=== PATIENT | female | born 1990 | race Caucasian/White ===

== ENCOUNTER → 2017-01-01 | Outpatient (CLI) | payer SELFPAY ==
[2017-01-01 16:27] LABS: FREE T4 (FREE THYROXINE) 1.14 ng/dL (0.93-1.71)
== END ==
LOC: MOB LAB 15:25
PROVIDERS: ATTEND Obstetrics & Gynecology
DX: Z36 Encounter for antenatal screening of mother (principal); Z3A.22 22 weeks gestation of pregnancy
CPT/HCPCS: 36415; 84439; 84443

== ENCOUNTER 2017-01-10 00:35 | Outpatient (CLI) | payer OTHER ==
[~2017-01-10 00:35] MED LIST: NORMAL SALINE 10 ML SYRINGE FLUSH IVP PRN
[2017-01-10 00:51] VITALS: RESP 20; TEMP 97.8
[2017-01-10] MEDS ORDERED: ACETAMINOPHEN 500 MG TABLET PO ONE ×2 (01:24→01:30)
--- NOTE | 2017-01-10 08:51 | PDOC(PROG) ---
Intake - - Reason for Visit/Chief Complaint: Other Additional Reason(s) for Visit: abdominal pain Admitted From: Home - LMP: 07/26/16 Estimated Due Date: 05/02/17 Gestational Age in Weeks and Days: 24 Weeks and 0 Days : 1 Para: 0 Term Births: 0 Births: 0 Number of Abortions (Spont./Elective): 0 Living Children: 0 Maternal - Vital Signs Last Taken Vital Signs: Vital Signs - Last Taken Temperature 97.8 F 01/10/17 00:34 Pulse Rate 88 01/10/17 00:34 Respiratory Rate 20 01/10/17 00:34 Blood Pressure 124/88 01/10/17 00:34 Pulse Ox 100 01/10/17 00:34 - Uterine Activity Uterine Contraction Monitor Mode: External Contraction Frequency(minutes): X2 Contraction Duration (seconds): 40 Uterine Contraction Pattern: Absent Uterine Tone Measurement Phase: Resting - Vaginal Discharge Vaginal Bleeding Amount: None Vaginal Discharge Amount: None Monitoring - Uterine Activity Uterine Contraction Monitor Mode: External Contraction Frequency(minutes): X2 Contraction Duration (seconds): 40 Uterine Contraction Pattern: Absent Uterine Tone Measurement Phase: Resting Results - Bedside Testing Bedside Urine Ketone: Negative Bedside Urine Leukocytes Esterase: Negative Bedside Urine Nitrite: Negative Bedside Urine Occult Blood: Negative Bedside Urine Protein: Negative Bedside Specific [place]: 1.015 Assessment and Plan - Patient Problems (1) Abdominal pain affecting Status: AcuteSupport Text: 26 yo at 24 weeks gestation who presented for umbilical pain at the fundus and b/l hips. Has been present for 72 hours. Has not tried anything to help it. Denies LOF, VB, vaginal discharge, contractions. Just sore whenever baby moves, good movement. FHT dopplered and wnl. Patient observed for >1 hour on the monitor, mild uterine irritability. Urine slightly concentrated but no sign of infection. Given 1000mg of tylenol. Education provided. F/u next week with OB provider, sooner for any concerns. Precautions. - Time Time Spent With Patient: Greater Than 35 Mintues
== END 2017-01-10 01:45 | disposition home or self-care (01) ==
LOC: OBOP 00:35
PROVIDERS: ATTEND Student in an Organized Health Care Education/Training Program
DX: O26.892 Other specified pregnancy related conditions, second trimester (principal); R10.84 Generalized abdominal pain; Z3A.24 24 weeks gestation of pregnancy
CPT/HCPCS: 81003; 99211

== ENCOUNTER → 2017-01-28 | Outpatient (CLI) | payer SELFPAY ==
[2017-01-28 15:58] LABS: HEMATOCRIT 35.4 % (37.0-47.0); HEMOGLOBIN 11.8 g/dL (12.0-16.0); MEAN CORPUSCULAR HGB CONC 33.3 g/dL (33-37); MEAN CORPUSCULAR VOLUME 84.1 FL (81-99); MEAN PLATELET VOLUME 9.9 FL (7.4-12.2); RED BLOOD COUNT 4.21 10^6/uL (4.20-5.40)
== END ==
LOC: LAB 14:38
PROVIDERS: ATTEND Obstetrics & Gynecology
DX: Z36 Encounter for antenatal screening of mother (principal); Z3A.26 26 weeks gestation of pregnancy
CPT/HCPCS: 36415; 82950; 85027

== ENCOUNTER 2017-02-01 17:16 | Outpatient (CLI) | payer SELFPAY ==
[2017-02-01] MEDS ORDERED: NORMAL SALINE 10 ML SYRINGE FLUSH IVP PRN (17:29)
[2017-02-01 18:03] VITALS: RESP 20; TEMP 97.8
[2017-02-01 18:15] LABS: HEMATOCRIT 34.7 % (37.0-47.0); HEMOGLOBIN 11.6 g/dL (12.0-16.0); MEAN CORPUSCULAR HEMOGLOBIN 28.2 PG (27-31); MEAN CORPUSCULAR HGB CONC 33.4 g/dL (33-37); MEAN CORPUSCULAR VOLUME 84.4 FL (81-99); MEAN PLATELET VOLUME 10.3 FL (7.4-12.2); RED BLOOD COUNT 4.11 10^6/uL (4.20-5.40)
[2017-02-01 18:23] LABS: BLOOD UREA NITROGEN 6 mg/dL (7-22); CALCIUM 8.9 mg/dL (8.7-10.7); EST GLOMERULAR FILTRATION > 60 (>60 ml/min/1.73m(2)); SERUM ALBUMIN 3.5 g/dL (3.5-4.8); URIC ACID 4.6 mg/dl (2.5-6.2)
[2017-02-01 18:36] LABS: AMPHETAMINE SCREEN NEGATIVE (NEG); CANNABINOID SCREEN,URINE NEGATIVE (NEG); COCAINE SCREEN NEGATIVE (NEG); METHADONE URINE SCREEN NEGATIVE (NEG); METHAMPHETAMINES SCREEN,URINE NEGATIVE (NEG); OPIATE SCREEN,URINE NEGATIVE (NEG); TRICYCLIC ANTIDEPRESSANT,URINE NEGATIVE (NEG); URINE SAMPLE TYPE VOIDED SPECIMEN; URINE SPECIFIC GRAVITY - MAN 1.003
--- NOTE | 2017-02-02 12:01 | PDOC(PROG) ---
Intake - - Reason for Visit/Chief Complaint: Decreased Movement Admitted From: Home - Estimated Due Date: 05/02/17 Gestational Age in Weeks and Days: 27 Weeks and 2 Days : 1 Para: 0 Term Births: 0 Births: 0 Number of Abortions (Spont./Elective): 0 Living Children: 0 - Labs Blood Type and Rh: O+ Group B Strep: Unknown Maternal - Vital Signs Last Taken Vital Signs: Vital Signs - Last Taken Temperature 97.8 F 02/01/17 17:43 Pulse Rate 108 H 02/01/17 17:43 Respiratory Rate 20 02/01/17 17:43 Blood Pressure 131/86 02/01/17 17:43 Pulse Ox 95 02/01/17 17:43 - Uterine Activity Uterine Contraction Monitor Mode: External Contraction Frequency(minutes): none noted palpates soft Uterine Contraction Pattern: Absent - Vaginal Discharge Vaginal Bleeding Amount: None Monitoring - Uterine Activity Uterine Contraction Monitor Mode: External Contraction Frequency(minutes): none noted palpates soft Uterine Contraction Pattern: Absent Results - Labs CBC and BMP: 02/01/17 18:15 02/01/17 18:15 - Bedside Testing Bedside Urine Ketone: Negative Bedside Urine Leukocytes Esterase: Moderate Bedside Urine Nitrite: Negative Bedside Urine Occult Blood: Negative Bedside Urine Protein: Negative Bedside Specific [place]: 1.005 Assessment and Plan - Assessment / Plan Additional Assessment/Plan Details: Assessment: IUP 27-2/7 weeks who presented to labor and delivery with decreased movement. External monitoring showed a reactive nonstress test. In labor and delivery, the patient could feel movement well. Additionally , the patient's blood pressure was mildly elevated at 132/90. Repeats were normal. The patient was asymptomatic without headache or abdominal pain. CBC and CMP were obtained and were normal. Plan: Patient was sent home with precautions for kick counts and preeclampsia. The patient's clinic nurse will contact the patient this week for a follow-up blood pressure check but also a 24 hour urine for total protein will be ordered at that time. The labor and delivery nurse thought that it would be best for the patient if the clinic nurse explained to the patient about a 24-hour urine for total protein and how to collect the 24 hour urine for total protein. The patient expressed understanding.
== END 2017-02-01 19:00 | disposition home or self-care (01) ==
LOC: OBOP 17:16
PROVIDERS: ATTEND Obstetrics & Gynecology
DX: O36.8120 Decreased fetal movements, second trimester, not applicable or unspecified (principal); O16.2 Unspecified maternal hypertension, second trimester; Z3A.27 27 weeks gestation of pregnancy
CPT/HCPCS: 36415; 59025; 80053; 80305; 81003; 83615; 84550; 85025; 99211

== ENCOUNTER 2017-02-04 17:00 | Emergency (ER) | payer OTHER ==
[2017-02-04 17:57] VITALS: RESP 18; TEMP 97.1
[2017-02-04 17:57] LABS: BILIRUBIN,URINE NEGATIVE (NEG); CLARITY,URINE CLEAR (CLEAR); COLOR,URINE YELLOW; GLUCOSE, URINE (UA) NEGATIVE (NEG); NITRATE,URINE NEGATIVE (NEG); OCCULT BLOOD,URINE TRACE (NEG); PROTEIN,URINE TRACE mg/dl (NEG); URINE SAMPLE TYPE VOIDED SPECIMEN
[2017-02-04 17:58] LABS: BACTERIA,URINE MANY; RBC,URINE 0-2 /hpf; SQUAMOUS EPITHELIAL CELL,UR MODERATE; UROBILINOGEN,URINE 0.2 EU/dL (0.2); WBC,URINE 25-50
--- NOTE | 2017-02-04 18:03 | PDOC ---
Female Problem HPI - General Chief Complaint: Genitourinary Complaint Stated Complaint: BURNING WITH URINATION Date Seen by Provider: 02/04/17 Time Seen by Provider: 17:58 - History of Present Illness Initial Comments: Patient is a very nice 26-year-old woman who presents to the emergency department with burning with urination and typical signs and symptoms of bladder infection. She is she's had multiple urinary tract infections in the past she has multiple questions about why she gets bladder infections otherwise she is denying any fever or chills denying flank pain denying any nausea or vomiting or any signs of more severe illness or sepsis. She has had a benign . She is primaparous and is at around 7 months. - Patient Home Medications Home Medications: Home Medications Pnv95/Ferrous Fumarate/FA [ Formula Tablet] 1 tab PO DAILY tab - Patient Allergies Allergies/Adverse Reactions: Allergies Allergy/AdvReac Type Severity Reaction Status Date / Time soy AdvReac Unverified 01/28/17 14:08 depoprovera Allergy rash, Uncoded 01/01/17 14:46 throat itching Past Medical History - heen HEENT History: Denies History Cardiovascular History: Denies History Respiratory History: Denies History Gastrointestinal History: Denies History Genitourinary History: Denies History Endocrine History: Hyperthyroidism Musculoskeletal History: Denies History Neurological History: Denies History Blood Disorders: Denies History Psychiatric History: Denies History History of Sexually Transmitted Diseases: No Female Reproductive History: Ovarian Cyst Obstetrical History: Denies History : 1 Para: 0 Cancer History: Denies History In Past Year Been Physically Harmed or Verbally Threatened: No History of MDRO: No History of Other Communicable Diseases: No Tobacco Use: Never Smoker Alcohol Use: None Substance Use Type: None Previous Surgical History: No Significant Family History: No pertinent family hx Past Medical History Reviewed: Reviewed - No Changes ROS - Limitations ROS Limitations: No Limitations [place]: REPORTS: Denies Symptoms Cardiovascular: REPORTS: Denies Cardiac Symptoms Respiratory: REPORTS: Denies Resp Symptoms Neurological: REPORTS: Denies Neuro Symptoms Female Genitourinary Exam - General Appearance General Appearance: POSITIVE: Alert, Cooperative, No Acute Distress - HEENT HEENT: POSITIVE: Head Inspection Nml, Eyes Inspection Nml, Ears Inspection Nml - Neck Neck: POSITIVE: Normal Inspection - Respiratory Respiratory: POSITIVE: No Respiratory Distress - Cardiovascular Cardiovascular: POSITIVE: Regular Rate and Rhythm - Abdomen Abdomen: POSITIVE: Soft, Gravid Uterus - Back Back: NEGATIVE: CVA Tenderness (R), CVA Tenderness (L) Female Genitourinary Progress - Patient's Progress MDM / ED Course: Patient appears to have urinary tract infection. I have discussed with her treatment especially given that she is I've encouraged follow-up with her director of catering sales in the next 3 or 4 days to go over culture results and make sure that she has a UTI that is covered well by her current antibiotic. She is at multiple questions about recurrent urinary tract infection she's had concerned that she might have picked up a particularly bad sort of organism from her recent senior care stay. I have discussed risk factors for her frequent UTIs including her appropriate wiping techniques and micturating after any type of sexual activity. If she continues to have frequent UTIs she may need evaluation from urology. Patient Care Time - Estimated PCT Patient Care Time (In Minutes): 20 Vital Signs - Recent Vital Signs Vital Signs: Vital Signs (Last 8 hours) Temp Pulse Resp BP Pulse Ox 02/04/17 17:36 97.1 F 104 H 18 136/96 94 - VS Reviewed Vital Signs Reviewed: Yes Discharge Clinical Impression: Urinary tract infectious disease Discharge Disposition: Discharged to Home Condition: Stable Patient Instructions Given at Discharge: Urinary Tract Infection in Women (ED)
== END 2017-02-04 18:32 | disposition home or self-care (01) ==
LOC: ER 17:00
DX: O23.43 Unspecified infection of urinary tract in pregnancy, third trimester (principal); Z3A.28 28 weeks gestation of pregnancy
CPT/HCPCS: 81001; 81003; 87088; 99282

== ENCOUNTER 2017-02-08 04:54 | Outpatient (CLI) | payer SELFPAY ==
[2017-02-08] MEDS ORDERED: NORMAL SALINE 10 ML SYRINGE FLUSH IVP PRN (04:56)
[2017-02-08 05:17] VITALS: RESP 20
[2017-02-08 06:37] LABS: BILIRUBIN,URINE NEGATIVE (NEG); CLARITY,URINE CLEAR (CLEAR); COLOR,URINE YELLOW; GLUCOSE, URINE (UA) NEGATIVE (NEG); NITRATE,URINE NEGATIVE (NEG); OCCULT BLOOD,URINE NEGATIVE (NEG); PH,URINE 6.5 (5.0-8.5); PROTEIN,URINE NEGATIVE (NEG); UROBILINOGEN,URINE 0.2 EU/dL (0.2)
[2017-02-08 06:58] LABS: URINE SAMPLE TYPE CLEAN CATCH URINE
[2017-02-08 07:34] VITALS: TEMP 97.4
--- NOTE | 2017-02-11 21:31 | PDOC(PROG) ---
Intake - - Reason for Visit/Chief Complaint: Spotting Admitted From: Home - Estimated Due Date: 05/02/17 Gestational Age in Weeks and Days: 28 Weeks and 4 Days : 1 Para: 0 Term Births: 0 Births: 0 Number of Abortions (Spont./Elective): 0 Living Children: 0 - Labs Blood Type and Rh: O+ Maternal - Vital Signs Last Taken Vital Signs: Vital Signs - Last Taken Temperature 97.4 F 02/08/17 07:00 Pulse Rate 72 02/08/17 07:00 Respiratory Rate 20 02/08/17 07:00 Blood Pressure 115/77 02/08/17 07:00 Pulse Ox 98 02/08/17 07:00 - Uterine Activity Uterine Contraction Monitor Mode: External Contraction Frequency(minutes): x1 Contraction Duration (seconds): 50 Uterine Contraction Pattern: Irregular Uterine Tone Measurement Phase: Resting Uterine Contraction Intensity: Mild Monitoring - Uterine Activity Uterine Contraction Monitor Mode: External Contraction Frequency(minutes): x1 Contraction Duration (seconds): 50 Uterine Contraction Pattern: Irregular Uterine Tone Measurement Phase: Resting Uterine Contraction Intensity: Mild Assessment and Plan - Patient Problems (1) Spotting during in third trimester Status: Acute (2) Vaginal lesion Status: Acute - Assessment / Plan Additional Assessment/Plan Details: Pt presented with cc of vaginal pain and spotting. She had a negative FFN, vaginosis panel and no contractions were noted on the monitor. When the nurses collected the swabs, they noted that she had what appeared to be herpes-like lesions. Pt was started on valtrex. I will relay results of this visit to the pt 's PCP, Dr. Love.
== END 2017-02-08 09:03 | disposition home or self-care (01) ==
LOC: OBOP 04:54
PROVIDERS: ATTEND Family Medicine
DX: O26.853 Spotting complicating pregnancy, third trimester (principal); O26.893 Other specified pregnancy related conditions, third trimester; N89.8 Other specified noninflammatory disorders of vagina; Z3A.28 28 weeks gestation of pregnancy
CPT/HCPCS: 59025; 81003; 82731; 87480; 87491; 87510; 87591; 87660; 99211

== ENCOUNTER → 2017-02-11 | Outpatient (CLI) | payer OTHER | LOC: MOB LAB 14:30 | PROVIDERS: ATTEND Obstetrics & Gynecology | DX: O23.593 Infection of other part of genital tract in pregnancy, third trimester (principal); Z3A.28 28 weeks gestation of pregnancy | CPT/HCPCS: 36415; 86695; 86696 ==

== ENCOUNTER 2017-02-23 00:11 | Outpatient (CLI) | payer OTHER ==
[2017-02-23 02:20] VITALS: RESP 16; TEMP 97.9
--- NOTE | 2017-03-01 19:44 | PDOC(PROG) ---
Intake - - Reason for Visit/Chief Complaint: Low Back Pain - Estimated Due Date: 05/02/17 Gestational Age in Weeks and Days: 31 Weeks and 1 Days : 1 Para: 0 Term Births: 0 Births: 0 Number of Abortions (Spont./Elective): 0 Living Children: 0 - Labs Blood Type and Rh: O+ Hepatitis B Surface Antigen: Absent HIV: Negative Rubella Status: Immune Maternal - Vital Signs Last Taken Vital Signs: Vital Signs - Last Taken Temperature 97.9 F 02/23/17 00:45 Pulse Rate 86 02/23/17 00:45 Respiratory Rate 16 02/23/17 00:45 Blood Pressure 128/91 02/23/17 00:45 Pulse Ox 100 02/23/17 00:45 - Uterine Activity Uterine Contraction Monitor Mode: External Contraction Frequency(minutes): rare Uterine Tone Measurement Phase: Resting - Vaginal Discharge Vaginal Bleeding Amount: None Monitoring - Uterine Activity Uterine Contraction Monitor Mode: External Contraction Frequency(minutes): rare Uterine Tone Measurement Phase: Resting Results - Bedside Testing Bedside Urine Ketone: Negative Bedside Urine Leukocytes Esterase: Negative Bedside Urine Nitrite: Negative Bedside Urine Protein: Negative Bedside Specific [place]: 1.010 Assessment and Plan - Patient Problems (1) Low back pain during in third trimester Status: Acute (2) Anxiety Status: Acute - Assessment / Plan Additional Assessment/Plan Details: -no contractions noted during stay on labor and delivery. -NST was reactive. -was instructed by nurse to speak with Dr. Love regarding options for treating her anxiety. -f/u: per her next regularly scheduled appt.
== END 2017-02-23 02:30 | disposition home or self-care (01) ==
LOC: OBOP 00:11
PROVIDERS: ATTEND Family Medicine
DX: O26.893 Other specified pregnancy related conditions, third trimester (principal); M54.5 Low back pain; O99.343 Other mental disorders complicating pregnancy, third trimester; F41.8 Other specified anxiety disorders; Z3A.29 29 weeks gestation of pregnancy
CPT/HCPCS: 59025; 81003; 99211

== ENCOUNTER → 2017-03-04 | Outpatient (CLI) | payer OTHER | LOC: MMPC 09:00 | PROVIDERS: ATTEND Obstetrics & Gynecology | DX: Z34.03 Encounter for supervision of normal first pregnancy, third trimester (principal); Z3A.31 31 weeks gestation of pregnancy; Z23 Encounter for immunization | CPT/HCPCS: 90715; G0463 ==

== ENCOUNTER 2017-03-05 16:27 | Outpatient (CLI) | payer OTHER ==
[2017-03-05 18:49] VITALS: RESP 18; TEMP 98.9
[2017-03-05] MEDS ORDERED: NORMAL SALINE 10 ML SYRINGE FLUSH IVP PRN (18:50)
--- NOTE | 2017-03-07 06:03 | PDOC(PROG) ---
Intake - - Reason for Visit/Chief Complaint: Decreased Movement Admitted From: Home - Estimated Due Date: 05/02/17 Gestational Age in Weeks and Days: 32 Weeks and 0 Days : 1 Para: 0 Term Births: 0 Births: 0 Number of Abortions (Spont./Elective): 0 Living Children: 0 - Labs Blood Type and Rh: O+ Group B Strep: Negative Hepatitis B Surface Antigen: Absent HIV: Negative Rubella Status: Immune VDRL/RPR: Absent Maternal - Vital Signs Last Taken Vital Signs: Vital Signs - Last Taken Temperature 98.9 F 03/05/17 18:48 Pulse Rate 89 03/05/17 18:48 Respiratory Rate 18 03/05/17 18:48 Blood Pressure 133/89 03/05/17 18:48 Pulse Ox 96 03/05/17 18:48 - Uterine Activity Uterine Contraction Monitor Mode: External Contraction Frequency(minutes): x2 Contraction Duration (seconds): 60 Uterine Contraction Pattern: Irregular Uterine Tone Measurement Phase: Resting - Vaginal Discharge Vaginal Bleeding Amount: None Vaginal Discharge Amount: None Monitoring - Uterine Activity Uterine Contraction Monitor Mode: External Contraction Frequency(minutes): x2 Contraction Duration (seconds): 60 Uterine Contraction Pattern: Irregular Uterine Tone Measurement Phase: Resting Results - Bedside Testing Bedside Urine Ketone: Negative Bedside Urine Leukocytes Esterase: Negative Bedside Urine Nitrite: Negative Bedside Urine Occult Blood: Negative Bedside Urine Protein: Negative Bedside Specific [place]: 1.000 Assessment and Plan - Assessment / Plan Additional Assessment/Plan Details: Reactive NST. Good FM. Discharge to home in good condition. - Time Time Spent With Patient: Less Than 15 Minutes
== END 2017-03-05 20:04 | disposition home or self-care (01) ==
LOC: OBOP 16:27
PROVIDERS: ATTEND Obstetrics & Gynecology
DX: O36.8130 Decreased fetal movements, third trimester, not applicable or unspecified (principal); Z3A.31 31 weeks gestation of pregnancy
CPT/HCPCS: 59025; 81003; 99211

== ENCOUNTER 2017-03-13 13:36 | Outpatient (CLI) | payer OTHER ==
[2017-03-13 13:51] VITALS: RESP 16; TEMP 98.2
--- NOTE | 2017-03-13 15:41 | DI ---
LIMITED OBSTETRICAL ULTRASOUND FOR BIOPHYSICAL PROFILE, 03/13/2017 2:22 PM Clinical History: Abnormal NST indicating distress. Previous Exam: None at this facility for this . ADJUSTED LMP: 07/26/2016. XAVIER: 27.7 cm. Qualitatively, there is increased amniotic fluid for this stage of suggesting polyhydramnios. Heart Rate: 130 Respiration Score: 2 Fine Motor Score: 2 Gross Motor Score: 2 Amnionic Fluid Score: 2 Readin. Biophysical Profile Score: 8/8 2. Amnionic fluid content is 27.7 cm. Qualitatively, this patient has polyhydramnios.
--- NOTE | 2017-03-18 14:18 | PDOC(PROG) ---
Intake - - Reason for Visit/Chief Complaint: Cramping Admitted From: Home - LMP: 07/26/2016 Estimated Due Date: 05/02/17 Gestational Age in Weeks and Days: 33 Weeks and 4 Days : 1 Para: 0 Term Births: 0 Births: 0 Number of Abortions (Spont./Elective): 0 Living Children: 0 - Labs Blood Type and Rh: O+ Group B Strep: Unknown Hepatitis B Surface Antigen: Absent HIV: Negative Rubella Status: Immune VDRL/RPR: Absent Maternal - Vital Signs Last Taken Vital Signs: Vital Signs - Last Taken Temperature 98.2 F 03/13/17 13:47 Pulse Rate 88 03/13/17 13:47 Respiratory Rate 16 03/13/17 13:47 Blood Pressure 133/78 03/13/17 13:47 Pulse Ox 99 03/13/17 13:47 - Uterine Activity Uterine Contraction Monitor Mode: None - Vaginal Discharge Vaginal Bleeding Amount: None Monitoring - Uterine Activity Uterine Contraction Monitor Mode: None Results - Bedside Testing Bedside Urine Ketone: Negative Bedside Urine Leukocytes Esterase: Negative Bedside Urine Nitrite: Negative Bedside Urine Occult Blood: Negative Bedside Urine Protein: Negative Bedside Specific [place]: 1.010 Assessment and Plan - Assessment / Plan Additional Assessment/Plan Details: No signs of labor. BPP normal. Reassuring maternal and evaluation. Discharge to home in good condition. - Time Time Spent With Patient: Less Than 15 Minutes
== END 2017-03-13 15:15 | disposition home or self-care (01) ==
LOC: OBOP 13:36
PROVIDERS: ATTEND Family Medicine
DX: O26.893 Other specified pregnancy related conditions, third trimester (principal); R25.2 Cramp and spasm; O40.3XX0 Polyhydramnios, third trimester, not applicable or unspecified; Z3A.32 32 weeks gestation of pregnancy
CPT/HCPCS: 59025; 76815; 76818; 81003; 99211

== ENCOUNTER 2017-03-17 13:44 | Outpatient (CLI) | payer OTHER ==
[2017-03-17 14:38] VITALS: RESP 20; TEMP 98
[2017-03-17] MEDS ORDERED: NORMAL SALINE 10 ML SYRINGE FLUSH IVP PRN (17:14)
--- NOTE | 2017-03-17 17:16 | DI ---
LIMITED OBSTETRICAL ULTRASOUND FOR XAVIER, 03/17/2017 3:00 PM: Clinical History: Polyhydramnios. Previous Exam: 03/13/2017. ADJUSTED LMP: 07/26/2016. Scans are obtained in all four quadrants for an amnionic fluid index measurement. The XAVIER is 20.9 cm. The heart rate is 128 beats per minute. Reading: Amnionic fluid index is 20.9 cm.
== END 2017-03-17 15:40 | disposition home or self-care (01) ==
LOC: US 13:44
PROVIDERS: ATTEND Obstetrics & Gynecology
DX: O40.3XX0 Polyhydramnios, third trimester, not applicable or unspecified (principal); Z3A.33 33 weeks gestation of pregnancy
CPT/HCPCS: 59025; 76815; 81003; 99211

== ENCOUNTER → 2017-04-01 | Outpatient (CLI) | payer OTHER ==
[~2017-04-01] MED LIST changes: +LIDOCAINE W/ SODIUM BICARB 0.5 ML SYR ONE; -NORMAL SALINE 10 ML SYRINGE FLUSH IVP PRN
[2017-04-01 21:57] LABS: BILIRUBIN,URINE NEGATIVE (NEG); CLARITY,URINE CLEAR (CLEAR); COLOR,URINE YELLOW; GLUCOSE, URINE (UA) NEGATIVE (NEG); NITRATE,URINE NEGATIVE (NEG); OCCULT BLOOD,URINE NEGATIVE (NEG); PH,URINE 6.5 (5.0-8.5); PROTEIN,URINE NEGATIVE (NEG); UROBILINOGEN,URINE 0.2 mg/dL (0.2)
[2017-04-01 22:00] LABS: BACTERIA,URINE RARE; SQUAMOUS EPITHELIAL CELL,UR MODERATE; URINE SAMPLE TYPE VOIDED SPECIMEN; WBC,URINE 0-2
== END ==
LOC: OBOP 20:45 → LAB 20:45
PROVIDERS: ATTEND Family Medicine
DX: Z36 Encounter for antenatal screening of mother (principal); Z3A.35 35 weeks gestation of pregnancy
CPT/HCPCS: 81001

== ENCOUNTER 2017-04-03 22:07 | Outpatient (CLI) | payer OTHER ==
[2017-04-03] MEDS ORDERED: NORMAL SALINE 10 ML SYRINGE FLUSH IVP PRN (22:16)
[2017-04-03 22:20] VITALS: RESP 16; TEMP 98
[2017-04-03 23:31] LABS: HEMATOCRIT 34.6 % (37.0-47.0); HEMOGLOBIN 11.6 g/dL (12.0-16.0); MEAN CORPUSCULAR HEMOGLOBIN 27.6 PG (27-31); MEAN CORPUSCULAR HGB CONC 33.5 g/dL (33-37); MEAN CORPUSCULAR VOLUME 82.2 FL (81-99); MEAN PLATELET VOLUME 11.6 FL (7.4-12.2); RED BLOOD COUNT 4.21 10^6/uL (4.20-5.40)
[2017-04-03 23:40] LABS: BLOOD UREA NITROGEN 9 mg/dL (7-22); BUN/CREATININE RATIO 11.25 (6-20); CALCIUM 9.2 mg/dL (8.7-10.7); EST GLOMERULAR FILTRATION > 60 (>60 ml/min/1.73m(2)); SERUM ALBUMIN 3.3 g/dL (3.5-4.8); URIC ACID 6.2 mg/dl (2.5-6.2)
--- NOTE | 2017-04-08 07:10 | PDOC(PROG) ---
Intake - - Reason for Visit/Chief Complaint: Painful Urination, Visual Disturbance Admitted From: Home - Estimated Due Date: 05/02/17 Gestational Age in Weeks and Days: 36 Weeks and 4 Days : 1 Para: 0 Term Births: 0 Births: 0 Number of Abortions (Spont./Elective): 0 Living Children: 0 - Labs Blood Type and Rh: O+ Maternal - Vital Signs Last Taken Vital Signs: Vital Signs - Last Taken Temperature 98.0 F 04/03/17 22:16 Pulse Rate 77 04/03/17 22:16 Respiratory Rate 16 04/03/17 22:16 Blood Pressure 138/90 04/03/17 23:48 Pulse Ox 100 04/03/17 22:16 - Uterine Activity Uterine Contraction Monitor Mode: External Contraction Frequency(minutes): 15 Contraction Duration (seconds): 90 Uterine Contraction Pattern: Irregular Uterine Tone Measurement Phase: Resting Uterine Contraction Intensity: Mild - Vaginal Discharge Vaginal Bleeding Amount: None Monitoring - Uterine Activity Uterine Contraction Monitor Mode: External Contraction Frequency(minutes): 15 Contraction Duration (seconds): 90 Uterine Contraction Pattern: Irregular Uterine Tone Measurement Phase: Resting Uterine Contraction Intensity: Mild Results - Labs CBC and BMP: 04/03/17 23:25 04/03/17 23:25 - Bedside Testing Bedside Urine Ketone: Negative Bedside Urine Leukocytes Esterase: Negative Bedside Urine Nitrite: Negative Bedside Urine Occult Blood: Negative Bedside Urine Protein: Negative Bedside Specific [place]: 1.010 Assessment and Plan - Assessment / Plan Additional Assessment/Plan Details: Reassuring maternal and evaluation. No signs of PTL. Discharge to home in good condition. - Time Time Spent With Patient: Less Than 15 Minutes
== END 2017-04-04 00:15 | disposition home or self-care (01) ==
LOC: OBOP 22:07
PROVIDERS: ATTEND Obstetrics & Gynecology
DX: O26.893 Other specified pregnancy related conditions, third trimester (principal); R30.0 Dysuria; R10.2 Pelvic and perineal pain; O13.3 Gestational [pregnancy-induced] hypertension without significant proteinuria, third trimester; H53.8 Other visual disturbances; Z3A.35 35 weeks gestation of pregnancy
CPT/HCPCS: 36415; 59025; 80053; 81003; 83615; 84550; 85025; 99211

== ENCOUNTER 2017-04-04 19:58 | Inpatient (IN) | payer OTHER ==
[2017-04-04] MEDS ORDERED: NORMAL SALINE 10 ML SYRINGE FLUSH IVP PRN ×2 (20:38→22:20)
[2017-04-04 21:13] LABS: BLOOD UREA NITROGEN 6 mg/dL (7-22); BUN/CREATININE RATIO 8.57 (6-20); CALCIUM 9.3 mg/dL (8.7-10.7); EST GLOMERULAR FILTRATION > 60 (>60 ml/min/1.73m(2)); SERUM ALBUMIN 3.1 g/dL (3.5-4.8); URIC ACID 6.2 mg/dl (2.5-6.2)
[2017-04-04 21:28] LABS: HEMATOCRIT 34.8 % (37.0-47.0); HEMOGLOBIN 11.9 g/dL (12.0-16.0); MEAN CORPUSCULAR HEMOGLOBIN 28.1 PG (27-31); MEAN CORPUSCULAR HGB CONC 34.2 g/dL (33-37); MEAN CORPUSCULAR VOLUME 82.1 FL (81-99); MEAN PLATELET VOLUME 11.8 FL (7.4-12.2); RED BLOOD COUNT 4.24 10^6/uL (4.20-5.40)
[2017-04-04] MEDS ORDERED: BETAMET ACET/BETAMET NA PH 6 MG/1 ML - 5 ML IM SCH (22:00)
[2017-04-04] MEDS ORDERED: LIDOCAINE W/ SODIUM BICARB 0.5 ML SYR SUBD PRN (22:20)
[2017-04-04] MEDS ORDERED: ONDANSETRON 4 MG/2 ML VIAL IVP PRN (22:20)
[2017-04-04] MEDS: BETAMET ACET/BETAMET NA PH 6 MG/1 ML - 5 ML IM SCH (22:58)
[2017-04-05 00:57] LABS: BILIRUBIN,URINE NEGATIVE (NEG); CLARITY,URINE CLEAR (CLEAR); COLOR,URINE YELLOW; GLUCOSE, URINE (UA) NEGATIVE (NEG); NITRATE,URINE NEGATIVE (NEG); OCCULT BLOOD,URINE NEGATIVE (NEG); PH,URINE 6.5 (5.0-8.5); PROTEIN,URINE NEGATIVE (NEG); UROBILINOGEN,URINE 0.2 EU/dL (0.2)
[2017-04-05 00:58] LABS: URINE SAMPLE TYPE CLEAN CATCH URINE
[2017-04-05 01:14] LABS: AMPHETAMINE SCREEN NEGATIVE (NEG); CANNABINOID SCREEN,URINE NEGATIVE (NEG); COCAINE SCREEN NEGATIVE (NEG); METHADONE URINE SCREEN NEGATIVE (NEG); METHAMPHETAMINES SCREEN,URINE NEGATIVE (NEG); OPIATE SCREEN,URINE NEGATIVE (NEG); TRICYCLIC ANTIDEPRESSANT,URINE NEGATIVE (NEG)
[2017-04-05 08:14] LABS: BLOOD UREA NITROGEN 6 mg/dL (7-22); BUN/CREATININE RATIO 8.57 (6-20); CALCIUM 9.8 mg/dL (8.7-10.7); EST GLOMERULAR FILTRATION > 60 (>60 ml/min/1.73m(2)); SERUM ALBUMIN 3.5 g/dL (3.5-4.8); URIC ACID 6.3 mg/dl (2.5-6.2)
[2017-04-05 08:18] LABS: HEMATOCRIT 36.2 % (37.0-47.0); HEMOGLOBIN 12.3 g/dL (12.0-16.0); MEAN CORPUSCULAR HEMOGLOBIN 27.9 PG (27-31); MEAN CORPUSCULAR VOLUME 82.1 FL (81-99); MEAN PLATELET VOLUME 11.6 FL (7.4-12.2); RED BLOOD COUNT 4.41 10^6/uL (4.20-5.40)
[2017-04-05] MEDS ORDERED: METHYLERGONOVINE MALEATE 0.2 MG/1 ML VIAL IM PRN (08:40)
[2017-04-05] MEDS ORDERED: TERBUTALINE SULFATE 1 MG/1 ML SDV SUBCUT PRN (08:40)
[2017-04-05] MEDS ORDERED: CITRIC ACID/SODIUM CITRATE 30 ML CUP PO PRN (08:40)
[2017-04-05] MEDS ORDERED: ePHEDrine Inj 5 MG in Normal Saline Flush 1 ML IVP PRN (08:40)
[2017-04-05] MEDS ORDERED: OXYTOCIN 10 UNIT/1 ML IM PRN (08:40)
[2017-04-05] MEDS ORDERED: Metoclopramide Inj 10 MG/2 ML VIAL IV PRN (08:40)
[2017-04-05] MEDS ORDERED: Carboprost Inj 250 MCG/ML AMP IM PRN (08:40)
[2017-04-05] MEDS ORDERED: ONDANSETRON 4 MG/2 ML VIAL IVP PRN (08:40)
[2017-04-05] MEDS ORDERED: NALOXONE 0.4 MG/1 ML VIAL IVP PRN (08:40)
[2017-04-05] MEDS ORDERED: fentaNYL Inj 100 MCG/2 ML VIAL IV PRN (08:40)
[2017-04-05] MEDS ORDERED: Lidocaine 1% 10 MG/ML - 20 ML VIAL SUBCUT PRN (08:40)
[2017-04-05] MEDS ORDERED: BUTORPHANOL TARTRATE 2 MG/1 ML VIAL IVP PRN (08:40)
[2017-04-05] MEDS ORDERED: Naloxone Inj 0.01 MG in Normal Saline Flush 1 ML IVP PRN (08:40)
[2017-04-05] MEDS ORDERED: CefOXitin Inj 2 GM in Sodium Chloride 0.9% 100 ML IV PRN (08:40)
[2017-04-05] MEDS ORDERED: LIDOCAINE W/ SODIUM BICARB 0.5 ML SYR SUBD PRN (08:40)
[2017-04-05] MEDS ORDERED: MISOPROSTOL 200 MCG TABLET RECTAL PRN (08:40)
[2017-04-05] MEDS ORDERED: Famotidine Inj 20 MG in Normal Saline Flush 10 ML IVP PRN ×4 (08:40)
[2017-04-05] MEDS ORDERED: NORMAL SALINE 10 ML SYRINGE FLUSH IVP PRN (08:40)
[2017-04-05] MEDS ORDERED: Nalbuphine Inj 20 MG/ML Ampule IVP PRN (08:40)
[2017-04-05] MEDS ORDERED: Phenylephrine Inj 50 MCG in Normal Saline Flush 0.5 ML IVP PRN (08:40)
[2017-04-05] MEDS ORDERED: diphenhydrAMINE 50 MG/1 ML VIAL IVP PRN (08:40)
[2017-04-05] MEDS ORDERED: Oxytocin 20 Units + LR 1,000 ML IV SCH (08:45)
[2017-04-05] MEDS ORDERED: Prenatal Multivitamin Tab 1 TAB TAB PO SCH (09:00)
[2017-04-05] MEDS ORDERED: PENICILLIN G POTASSIUM 5,000,000 UNIT SDV IV ONE (09:45)
[2017-04-05] MEDS ORDERED: Sodium Chloride 0.9% 100 ML IV ONE (09:56)
[2017-04-05] MEDS: Lactated Ringers-OB Dept 1,000 ML PRIMARY IV SCH (09:57)
[2017-04-05] MEDS ORDERED: FLUCONAZOLE IV ONE (11:24)
[2017-04-05] MEDS ORDERED: SODIUM CHLORIDE IV ONE (11:24)
[2017-04-05 12:19] LABS: 24 HOUR URINE TOTAL VOLUME 7050 ML
[2017-04-05] MEDS: CALCIUM CARBONATE 500 MG (TUMS) CHEWABLE TABLET PO PRN (12:33)
--- NOTE | 2017-04-05 21:55 | OB.PROGRES ---
Date and Time of Service: 04/05/17 @ 0005 Interval History: Pt was admitted last noc for FISHER, increased swelling. She has been monitored for [id number] and has a 24 hour urine for protein in progress. She denies any cramping or contractions, vag bleeding or gushes of fluid. Baby has been moving normally. Pt does report intermittent FISHER and has some pain down her right flank, but nothing in the RUQ per say. She had labs drawn in the past 1-2 days, which were normal. She has a past h/o alcohol syndrome and underlying anxiety as well. Objective - Cervical Exam Cervical Exam: closed/thinning/-2/cephalic and very soft. [place]: every 2-3 minutes, palpating mild. Pt is rating her pain, however, at a 7/ 10. Heart Rate: category 1, no decels noted, moderate variability. Heart Rate Interpretation Category: Category I - Labs CBC and BMP: 04/05/17 08:00 04/05/17 08:00 Labs - Last 24 Hours: Laboratory Results 04/05/17 04/05/17 04/05/17 Range/Units 00:58 08:00 10:39 WBC 17.80 H (4.8-10.8) 10^3/uL RBC 4.41 (4.20-5.40) 10^6/uL Hgb 12.3 (12.0-16.0) g/dL Hct 36.2 L (37.0-47.0) % MCV 82.1 (81-99) FL MCH 27.9 (27-31) PG MCHC 34.0 (33-37) g/dL RDW Std Deviation 44.7 (39-50) fL RDW Coeff of Thad 15.1 H (11.5-14.5) % Plt Count 347 (140-350) 10*3/uL MPV 11.6 (7.4-12.2) FL Sodium 138 (135-145) meq/L Potassium 4.2 (3.8-5.2) meq/L Chloride 110 (98-112) meq/L Carbon Dioxide 19 L (23-33) meq/L Anion Gap 9 (5-20) BUN 6 L (7-22) mg/dL Creatinine 0.7 (0.50-1.20) mg/dL Estimated GFR > 60 (>60 ml/min/1.73m(2)) BUN/Creatinine Ratio 8.57 (6-20) Glucose 113 H (78-110) mg/dL Calculated Osmolality 284.0 (267-292) mOsm/kg Uric Acid 6.3 H (2.5-6.2) mg/dl Calcium 9.8 (8.7-10.7) mg/dL Total Bilirubin 0.4 (0.3-1.2) mg/dL AST 22 (8-39) IU/L ALT 18 (9-52) IU/L Alkaline Phosphatase 146 H (38-126) IU/L Lactate Dehydrogenase 386 (313-618) IU/L Total Protein 6.9 (6.1-8.0) g/dL Albumin 3.5 (3.5-4.8) g/dL Globulin 3.4 (2.50-4.10) g/dL Albumin/Globulin Ratio 1.00 L (1.3-2.0) mg/g Ur Collection Type Clean catch urine Urine Color Yellow Urine Clarity Clear (CLEAR) Urine pH 6.5 (5.0-8.5) Ur Specific [place] 1.010 (1.005-1.030) U Specif Grav (Refrac) 1.010 Urine Protein Negative (NEG) mg/dl Urine Glucose (UA) Negative (NEG) mg/dL Urine Ketones Negative (NEG) Urine Occult Blood Negative (NEG) Urine Nitrate Negative (NEG) Urine Bilirubin Negative (NEG) Urine Urobilinogen 0.2 (0.2) EU/dL Ur Leukocyte Esterase Negative (NEG) Ur Culture Indicated? Culture not set Ur 24 Hour Volume 7050 ML Ur Total Protein 24 Hr 15 mg/dL U Tot Protein 24h, Calc 1057 H (42-225) mg/DAY Urine Opiates Screen Negative (NEG) Ur Buprenorphine Negative (NEG) Ur Oxycodone Screen Negative (NEG) Urine Methadone Screen Negative (NEG) Ur Propoxyphene Screen Negative (NEG) Ur Barbiturates Screen Negative (NEG) U Tricyclic Antidepress Negative (NEG) Phencyclidine Screen Negative (NEG) Amphetamines Screen Negative (NEG) U Methamphetamines Scrn Negative (NEG) U Benzodiazepines Scrn Negative (NEG) Urine Cocaine Screen Negative (NEG) U Cannabinoids Screen Negative (NEG) - Vital Signs Last Taken Vital Signs: Vital Signs - Last Taken Temperature 98.2 F 04/05/17 19:48 Pulse Rate 82 04/05/17 19:48 Respiratory Rate 20 04/05/17 19:48 Blood Pressure 132/78 04/05/17 20:08 Pulse Ox 98 04/05/17 19:48 Assessment and Plan - Patient Problems (1) Gestational hypertension Current Visit: Yes Status: Acute (2) Candidal vaginitis Current Visit: Yes Status: Acute (3) uterine contractions Current Visit: Yes Status: Acute - Assessment / Plan Additional Assessment/Plan Details: -Pt with blood pressures that qualify a gestational hypertension diagnosis, urine dip for protein was trace but she does have a 24 hour urine for protein pending. -she has received 1 dose of betamethasone last noc and will have this repeated tonight in the event that she will deliver or needs to be delivered early. The steroids may be the cause of some of her contractions today as well. -GBS is pending. -will treat yeast vaginitis with diflucan today. -continue to follow closely. Will trend her labs tomorrow and continue to monitor her in the inpatient setting for symptoms of severe pre-eclampsia. -I updated Dr. Love on the pt's status and plan around noon. He will assume care of this patient starting at 1200 today until I return from out of town tomorrow.
[2017-04-05] MEDS: BETAMET ACET/BETAMET NA PH 6 MG/1 ML - 5 ML IM SCH (23:00)
[2017-04-06] MEDS: Lactated Ringers-OB Dept 1,000 ML PRIMARY IV SCH (06:05)
[2017-04-06 07:28] LABS: HEMATOCRIT 39.1 % (37.0-47.0); HEMOGLOBIN 13.2 g/dL (12.0-16.0); MEAN CORPUSCULAR HEMOGLOBIN 28.1 PG (27-31); MEAN CORPUSCULAR HGB CONC 33.8 g/dL (33-37); MEAN CORPUSCULAR VOLUME 83.2 FL (81-99); RED BLOOD COUNT 4.7 10^6/uL (4.20-5.40)
[2017-04-06 07:29] LABS: MEAN PLATELET VOLUME 11.8 FL (7.4-12.2)
[2017-04-06] MEDS: CALCIUM CARBONATE 500 MG (TUMS) CHEWABLE TABLET PO PRN (07:31)
[2017-04-06 07:37] LABS: BLOOD UREA NITROGEN 9 mg/dL (7-22); BUN/CREATININE RATIO 11.25 (6-20); CALCIUM 9.6 mg/dL (8.7-10.7); EST GLOMERULAR FILTRATION > 60 (>60 ml/min/1.73m(2)); SERUM ALBUMIN 3.5 g/dL (3.5-4.8); URIC ACID 6.3 mg/dl (2.5-6.2)
[2017-04-06 08:48] VITALS: RESP 18; TEMP 98.2
[2017-04-06] MEDS ORDERED: MAG HYDROX/AL HYDROX/SIMETH 30 ML SUSP PO ONE (08:51)
--- NOTE | 2017-04-06 09:37 | DCSUMMARY ---
Hospitalization Summary Admit Date: 03/28/17 Discharge Date: 04/06/17 Primary Diagnosis:: Pre Eclampsia at 36 weeks Hospital Course: The patient was observed on L&D and given two doses of steroids, 24 hours apart for FLM. She had regular contractions last evening, but these abated without cervical change. BP's have been in the 120-140/70-100s. 24 hour urine returned with 1 gr of protein, c/w pre eclampsia. Labs have otherwise remained normal. The patient was discharged home to bed rest with twice weekly f/u on L& D. Exam - Vitals Vital Signs: Vital Signs Temperature 98.2 F Temperature Source Oral Pulse Rate [Pulse Oximeter] 79 Respiratory Rate 18 Blood Pressure [Left Arm] 129/81 Blood Pressure [Right Arm] 137/93 Pulse Ox 98 Oxygen Delivery Method Room Air Height 5 ft 3 in Weight 195 lb 6.4 oz
== END 2017-04-06 10:10 | disposition home or self-care (01) | DRG 781 ==
LOC: OBOP 19:58 → OBIP 22:15 → OBSVTOIN 04-05 08:40 → OBIP 04-05 08:40
PROVIDERS: ADMIT Family Medicine; ATTEND Family Medicine
DX: O14.93 Unspecified pre-eclampsia, third trimester (principal); O60.03 Preterm labor without delivery, third trimester; O23.593 Infection of other part of genital tract in pregnancy, third trimester; Z3A.36 36 weeks gestation of pregnancy; O13.3 Gestational [pregnancy-induced] hypertension without significant proteinuria, third trimester
CPT/HCPCS: 36415; 80053; 80305; 81003; 83615; 84156; 84550; 85025; 87150; 87480; 87510; 87660; J0702; J1450; J2540; J7050; J7120

== ENCOUNTER 2017-04-08 12:29 | Outpatient (CLI) | payer OTHER ==
[2017-04-08 12:21] VITALS: RESP 20; TEMP 97.8
[2017-04-08 12:46] LABS: BLOOD UREA NITROGEN 13 mg/dL (7-22); BUN/CREATININE RATIO 18.57 (6-20); EST GLOMERULAR FILTRATION > 60 (>60 ml/min/1.73m(2)); SERUM ALBUMIN 3.2 g/dL (3.5-4.8); URIC ACID 6.5 mg/dl (2.5-6.2)
[2017-04-08] MEDS ORDERED: ACETAMINOPHEN 500 MG TABLET PO ONE (13:00)
[2017-04-08 13:12] LABS: HEMATOCRIT 37.7 % (37.0-47.0); HEMOGLOBIN 12.4 g/dL (12.0-16.0); MEAN CORPUSCULAR HEMOGLOBIN 27.7 PG (27-31); MEAN CORPUSCULAR HGB CONC 32.9 g/dL (33-37); MEAN CORPUSCULAR VOLUME 84.2 FL (81-99); MEAN PLATELET VOLUME 12.2 FL (7.4-12.2); RED BLOOD COUNT 4.48 10^6/uL (4.20-5.40)
--- NOTE | 2017-04-08 16:11 | PDOC(PROG) ---
Intake - - Reason for Visit/Chief Complaint: Other Additional Reason(s) for Visit: apt Admitted From: Home - Estimated Due Date: 05/02/17 Gestational Age in Weeks and Days: 36 Weeks and 4 Days : 1 Para: 0 Term Births: 0 Births: 0 Number of Abortions (Spont./Elective): 0 Living Children: 0 - Labs Blood Type and Rh: O+ Group B Strep: Positive Hepatitis B Surface Antigen: Absent HIV: Negative Rubella Status: Immune VDRL/RPR: Absent Maternal - Vital Signs Last Taken Vital Signs: Vital Signs - Last Taken Temperature 97.8 F 04/08/17 12:17 Pulse Rate 88 04/08/17 12:17 Respiratory Rate 20 04/08/17 12:17 Blood Pressure 128/86 04/08/17 12:17 Pulse Ox 99 04/08/17 12:17 - Uterine Activity Uterine Contraction Monitor Mode: External Uterine Contraction Pattern: Absent Uterine Tone Measurement Phase: Resting - Vaginal Discharge Vaginal Bleeding Amount: None Monitoring - Uterine Activity Uterine Contraction Monitor Mode: External Uterine Contraction Pattern: Absent Uterine Tone Measurement Phase: Resting Results - Labs CBC and BMP: 04/08/17 12:17 04/08/17 12:17 - Bedside Testing Bedside Urine Ketone: Negative Bedside Urine Leukocytes Esterase: Negative Bedside Urine Nitrite: Negative Bedside Urine Occult Blood: Negative Bedside Urine Protein: Negative Bedside Specific [place]: 1.005 Assessment and Plan - Assessment / Plan Additional Assessment/Plan Details: Assessment: IUP 36-4/7 weeks with preeclampsia without signs or symptoms of severe preeclampsia. Reactive nonstress test Blood pressures were mildly elevated Patient stated that her headache that she had had since discharge from the hospital was improved today. Patient was given Tylenol and her headache improved somewhat. Patient left labor and delivery before total resolution of headache. The patient was urged to return to labor and delivery for an increased headache Labs were normal with normal platelets, creatinine was normal. AST and ALT were normal. Plan: Decreased activity or bed rest at home Preeclampsia symptoms discussed with patient and for patient to return for increased symptoms Induction of labor with cervical ripening in 2 days when the patient is 36-6/7 week Patient's cervix was checked today and I believe her cervix was fingertip. Her cervix is very soft. I will examine the patient with a speculum in 2 days. The patient expressed understanding with this plan. If the patient's cervix is normal and not ripened, cervical ripening with Cytotec. This was explained to the patient. Patient expressed understanding and left labor and delivery.
== END 2017-04-08 14:00 | disposition home or self-care (01) ==
LOC: OBOP 12:29
PROVIDERS: ATTEND Obstetrics & Gynecology
DX: O14.93 Unspecified pre-eclampsia, third trimester (principal); Z3A.36 36 weeks gestation of pregnancy
CPT/HCPCS: 36415; 80053; 81003; 83615; 84550; 85025

== ENCOUNTER 2017-04-10 09:11 | Inpatient (IN) | payer OTHER ==
[2017-04-10] MEDS ORDERED: MISOPROSTOL 200 MCG TABLET RECTAL PRN (09:18)
[2017-04-10] MEDS ORDERED: Phenylephrine Inj 50 MCG in Normal Saline Flush 0.5 ML IVP PRN (09:18)
[2017-04-10] MEDS ORDERED: Metoclopramide Inj 10 MG/2 ML VIAL IV PRN (09:18)
[2017-04-10] MEDS ORDERED: Naloxone Inj 0.01 MG in Normal Saline Flush 1 ML IVP PRN (09:18)
[2017-04-10] MEDS ORDERED: LIDOCAINE W/ SODIUM BICARB 0.5 ML SYR SUBD PRN (09:18)
[2017-04-10] MEDS ORDERED: ePHEDrine Inj 5 MG in Normal Saline Flush 1 ML IVP PRN (09:18)
[2017-04-10] MEDS ORDERED: fentaNYL Inj 100 MCG/2 ML VIAL IV PRN (09:18)
[2017-04-10] MEDS ORDERED: Carboprost Inj 250 MCG/ML AMP IM PRN (09:18)
[2017-04-10] MEDS ORDERED: NORMAL SALINE 10 ML SYRINGE FLUSH IVP PRN (09:18)
[2017-04-10] MEDS ORDERED: CefOXitin Inj 2 GM in Sodium Chloride 0.9% 100 ML IV PRN (09:18)
[2017-04-10] MEDS ORDERED: OXYTOCIN 10 UNIT/1 ML IM PRN (09:18)
[2017-04-10] MEDS ORDERED: ONDANSETRON 4 MG/2 ML VIAL IVP PRN (09:18)
[2017-04-10] MEDS ORDERED: Lidocaine 1% 10 MG/ML - 20 ML VIAL SUBCUT PRN (09:18)
[2017-04-10] MEDS ORDERED: Famotidine Inj 20 MG in Normal Saline Flush 10 ML IVP PRN ×4 (09:18)
[2017-04-10] MEDS ORDERED: CITRIC ACID/SODIUM CITRATE 30 ML CUP PO PRN (09:18)
[2017-04-10] MEDS ORDERED: TERBUTALINE SULFATE 1 MG/1 ML SDV SUBCUT PRN (09:18)
[2017-04-10] MEDS ORDERED: CALCIUM CARBONATE 500 MG (TUMS) CHEWABLE TABLET PO PRN (09:18)
[2017-04-10] MEDS ORDERED: Nalbuphine Inj 20 MG/ML Ampule IVP PRN (09:18)
[2017-04-10] MEDS ORDERED: METHYLERGONOVINE MALEATE 0.2 MG/1 ML VIAL IM PRN (09:18)
[2017-04-10] MEDS ORDERED: diphenhydrAMINE 50 MG/1 ML VIAL IVP PRN (09:18)
[2017-04-10] MEDS ORDERED: NALOXONE 0.4 MG/1 ML VIAL IVP PRN (09:18)
[2017-04-10] MEDS ORDERED: BUTORPHANOL TARTRATE 2 MG/1 ML VIAL IVP PRN (09:18)
[2017-04-10] MEDS ORDERED: Oxytocin 20 Units + LR 1,000 ML IV SCH (09:30)
[2017-04-10] MEDS: Lactated Ringers-OB Dept 1,000 ML PRIMARY IV SCH ×2 (09:45→21:30)
[2017-04-10 09:59] LABS: HEMATOCRIT 37.8 % (37.0-47.0); HEMOGLOBIN 12.9 g/dL (12.0-16.0); MEAN CORPUSCULAR HGB CONC 34.1 g/dL (33-37); RED BLOOD COUNT 4.61 10^6/uL (4.20-5.40)
[2017-04-10 10:09] LABS: BLOOD UREA NITROGEN 10 mg/dL (7-22); BUN/CREATININE RATIO 14.28 (6-20); CALCIUM 9.1 mg/dL (8.7-10.7); EST GLOMERULAR FILTRATION > 60 (>60 ml/min/1.73m(2)); SERUM ALBUMIN 3.1 g/dL (3.5-4.8)
--- NOTE | 2017-04-10 13:01 | OB.PROGRES ---
Interval History: The patient is a 26-year-old at 36-6/7 weeks who is admitted today for cervical ripening secondary to preeclampsia without signs or symptoms of severe preeclampsia. The patient is GBS positive. She has had blood pressures above 140/90 but no severe blood pressures of 160/110. She did have an intermittent headache over the past several days but after 1 dose of Tylenol was given to the patient 2 days ago, the patient has not had a headache. Positive movement, no leak of fluid, no bleeding. The patient presented last Friday for contractions and was found to have elevated blood pressures and then a 24 hour urine was completed which showed slightly more than 1 g of protein in 24 hours. The patient was given Celestone 2 doses to complete a full course of Celestone for lung maturity. The baby is a male infant. A growth scan was done 3 days ago which showed EFW to be 3300 g. XAVIER was normal. Nonstress test was done 2 days ago which was reactive. The patient's labs have all been normal except the 24 urine for total protein. Past medical history significant for the patient herself having alcohol syndrome, the patient states she has a history of hypothyroidism but she was taken off of levothyroxine while she was seen in [place]. Her thyroid function tests year were normal according to patient. Past surgical history a laparoscopic right ovarian cystectomy The patient is allergic to medroxyprogesterone No tobacco, no alcohol, no drugs Positive group B strep. Menarche age 14, no abnormal Pap smear history and no STI history. The patient has been followed by my [employer] physician partner-Dr. Love during her . However, he is away on vacation and the patient will undergo induction of labor. Objective - Cervical Exam Cervical Exam: /-3 cephalic [place]: No contractions Heart Rate Interpretation Category: Category I - Labs CBC and BMP: 04/10/17 09:51 04/10/17 09:51 Labs - Last 24 Hours: Laboratory Results 04/10/17 Range/Units 09:51 WBC 16.94 H (4.8-10.8) 10^3/uL RBC 4.61 (4.20-5.40) 10^6/uL Hgb 12.9 (12.0-16.0) g/dL Hct 37.8 (37.0-47.0) % MCV 82.0 (81-99) FL MCH 28.0 (27-31) PG MCHC 34.1 (33-37) g/dL RDW Std Deviation 44.8 (39-50) fL RDW Coeff of Thad 15.2 H (11.5-14.5) % Plt Count 341 (140-350) 10*3/uL MPV 12.0 (7.4-12.2) FL Sodium 137 (135-145) meq/L Potassium 3.6 L (3.8-5.2) meq/L Chloride 108 (98-112) meq/L Carbon Dioxide 19 L (23-33) meq/L Anion Gap 10 (5-20) BUN 10 (7-22) mg/dL Creatinine 0.7 (0.50-1.20) mg/dL Estimated GFR > 60 (>60 ml/min/1.73m(2)) BUN/Creatinine Ratio 14.28 (6-20) Glucose 125 H (78-110) mg/dL Calculated Osmolality 283.0 (267-292) mOsm/kg Calcium 9.1 (8.7-10.7) mg/dL Total Bilirubin 0.3 (0.3-1.2) mg/dL AST 20 (8-39) IU/L ALT 19 (9-52) IU/L Alkaline Phosphatase 130 H (38-126) IU/L Total Protein 6.0 L (6.1-8.0) g/dL Albumin 3.1 L (3.5-4.8) g/dL Globulin 2.9 (2.50-4.10) g/dL Albumin/Globulin Ratio 1.00 L (1.3-2.0) mg/g - Vital Signs Last Taken Vital Signs: Vital Signs - Last Taken Temperature 97.6 F 04/10/17 09:20 Pulse Rate 75 04/10/17 11:00 Respiratory Rate 18 04/10/17 09:20 Blood Pressure 130/90 04/10/17 11:00 Pulse Ox 95 04/10/17 09:20 - Additional Details Additional Details: Lungs clear to auscultation Heart regular rate and rhythm Abdomen is gravid soft and nontender with cephalic presentation by Anders's Reflexes 2+ bilaterally and no clonus Assessment and Plan - Assessment / Plan Additional Assessment/Plan Details: Assessment: IUP 36-6/7 weeks with preeclampsia without signs or symptoms of severe preeclampsia. Blood pressures in the 140s over 90s with occasional diastolic blood pressure up to 104. Never in the severe range. Platelets are normal, H&H is 12 and 37. Liver function tests and renal function tests are normal. Patient did have greater than 1 g of protein in 24 hours. The patient did have a headache intermittently but has not had a headache since she was given Tylenol 2 days ago. Group B strep positive Plan: Admit and administer penicillin every 4 hours for GBS prophylaxis After second dose of antibiotics, first dose of Cytotec will be given to patient. I explained that this is an off label use for cervical ripening. Patient expressed understanding and agreed. We discussed indications for section would be nonreassuring status, arrest of dilation, arrest of descent, or for other reasons. The patient is interested in an epidural for pain control once she is in active labor. The patient and I did discuss that there is an increased risk for a section one induction of labor does occur but the indication for induction of labor is preeclampsia. Patient expressed understanding. The risk, benefits, alternatives and indications for a section were discussed with the patient in detail. The risk of infection, bleeding, pain, postoperative infection, postoperative bleeding, blood transfusion with associated risks, risk of hysterectomy, damage to bowel, bladder, nerve, vessel, nicking the baby , transfer to a tertiary care hospital secondary to severe infection, and even the low risk of were discussed with the patient. Patient expressed understanding and patient agrees that induction of labor is indicated secondary to preeclampsia. I also explained that sometimes induction of labor take several days. Patient expressed understanding. The patient's was in attendance during the entire time and discussions.
[2017-04-10] MEDS ORDERED: Misoprostol Tab 100 MCG TAB VAGINAL PRN (14:00)
[2017-04-10] MEDS ORDERED: HYDROXYZINE PAMOATE 25 MG CAPSULE PO ONE (21:30)
[2017-04-11] MEDS: Lactated Ringers-OB Dept 1,000 ML PRIMARY IV SCH ×2 (02:00→15:36)
[2017-04-11] MEDS ORDERED: Oxytocin 20 Units + LR 1,000 ML IV SCH (05:45)
--- NOTE | 2017-04-11 07:35 | OB.PROGRES ---
Interval History: The patient states that she did sleep last p.m. Last evening she just had to get rest so she asked that we not do anything else and the patient was given hydroxyzine and the patient stated that she rested well. She is ready for today. No headaches. Positive movement. No gush of fluid. No bleeding. Objective - Cervical Exam Cervical Exam: 1-260/-3 cephalic. The cervix is on the maternal right and anterior. Membranes were swept gently but it was difficult to do so secondary to patient discomfort but also the cervix is not midline. [place]: Contractions every 2-4 minutes on 1 milliunit of Pitocin which was started earlier. Heart Rate Interpretation Category: Category I - Labs CBC and BMP: 04/10/17 09:51 04/10/17 09:51 Labs - Last 24 Hours: Laboratory Results 04/10/17 Range/Units 09:51 WBC 16.94 H (4.8-10.8) 10^3/uL RBC 4.61 (4.20-5.40) 10^6/uL Hgb 12.9 (12.0-16.0) g/dL Hct 37.8 (37.0-47.0) % MCV 82.0 (81-99) FL MCH 28.0 (27-31) PG MCHC 34.1 (33-37) g/dL RDW Std Deviation 44.8 (39-50) fL RDW Coeff of Thad 15.2 H (11.5-14.5) % Plt Count 341 (140-350) 10*3/uL MPV 12.0 (7.4-12.2) FL Sodium 137 (135-145) meq/L Potassium 3.6 L (3.8-5.2) meq/L Chloride 108 (98-112) meq/L Carbon Dioxide 19 L (23-33) meq/L Anion Gap 10 (5-20) BUN 10 (7-22) mg/dL Creatinine 0.7 (0.50-1.20) mg/dL Estimated GFR > 60 (>60 ml/min/1.73m(2)) BUN/Creatinine Ratio 14.28 (6-20) Glucose 125 H (78-110) mg/dL Calculated Osmolality 283.0 (267-292) mOsm/kg Calcium 9.1 (8.7-10.7) mg/dL Total Bilirubin 0.3 (0.3-1.2) mg/dL AST 20 (8-39) IU/L ALT 19 (9-52) IU/L Alkaline Phosphatase 130 H (38-126) IU/L Total Protein 6.0 L (6.1-8.0) g/dL Albumin 3.1 L (3.5-4.8) g/dL Globulin 2.9 (2.50-4.10) g/dL Albumin/Globulin Ratio 1.00 L (1.3-2.0) mg/g - Vital Signs Last Taken Vital Signs: Vital Signs - Last Taken Temperature 98.0 F 04/11/17 05:15 Pulse Rate 62 04/11/17 06:44 Respiratory Rate 20 04/11/17 05:15 Blood Pressure 133/97 04/11/17 05:15 Pulse Ox 98 04/11/17 02:20 - Additional Details Additional Details: Reflexes-2+ patellar bilaterally and no clonus currently but nurse stated her reflexes were 3+ patellar earlier. Assessment and Plan - Assessment / Plan Additional Assessment/Plan Details: Assessment: IUP 37 weeks with preeclampsia with no signs or symptoms of severe preeclampsia. However, the patient has had some elevated blood pressures but not in the severe range up to 150s over 103-104 diastolic. Overnight while in bed the patient's blood pressures were 130s over 80s to 140s over 90s. After just checking the patient this morning, the blood pressure machine checked her blood pressure and it was 140/110 but immediately repeated blood pressure was 142/96. The patient is asymptomatic. Group B strep positive receiving penicillin The patient's cervix is in a very unique position or presentation. It is to the patient's maternal right and very anterior. Yesterday, her cervix was midline and although soft, I could palpate the cervix easily. Today, the patient's cervix is moved to the maternal right and anterior and I am not sure if this is secondary to the patient's cervix or the head presentation being asynclitic. The patient's reflexes are 2+ that have been 3+. Plan: Continue to follow blood pressures. If the patient's blood pressures even elevate to 150s over 100s, I most likely will start magnesium sulfate for seizure prophylaxis. Pitocin is currently at 2 milliunits and Pitocin will have to be used for cervical ripening since I cannot use another dose of Cytotec currently since the patient continued to contract last evening and even overnight and this morning from the 1 dose of Cytotec at 1400 hrs. yesterday afternoon. Continue IV penicillin for GBS prophylaxis. The patient is on clear liquids. If the patient's blood pressures do elevate, I will also repeat a CBC and CMP. I have explained to the patient and her and her mother that we will continue to try to ripen the patient's cervix but the cervix is in a unique position. I explained that her cervix may dilate and she may have a vaginal delivery but she also may have arrest of dilation or unsuccessful cervical ripening and she may require a section for delivery. Everyone expressed understanding. I also explained the possibility of magnesium sulfate intravenously and the patient expressed understanding.
--- NOTE | 2017-04-11 15:11 | OB.PROGRES ---
Interval History: The patient can feel her contractions. The patient is doing okay. Some pain with contractions. No gush of fluid. No bleeding. Objective - Cervical Exam Cervical Exam: 2-3/60/-2 cephalic. There is a tight internal OS band noted. Membranes were swept gently. Minimal bleeding. [place]: Every 3-4 minutes on 4 milliunits of Pitocin Heart Rate Interpretation Category: Category I (There were 2 or 3 late decelerations when the patient was on 8 milliunits of Pitocin. The Pitocin was cut in half to 4 milliunits and there are good accelerations with no late decelerations.) - Labs CBC and BMP: 04/10/17 09:51 04/10/17 09:51 - Vital Signs Last Taken Vital Signs: Vital Signs - Last Taken Temperature 97.7 F 04/11/17 11:00 Pulse Rate 71 04/11/17 14:00 Respiratory Rate 18 04/11/17 12:00 Blood Pressure 140/83 04/11/17 14:00 Pulse Ox 99 04/11/17 06:30 Assessment and Plan - Assessment / Plan Additional Assessment/Plan Details: Assessment: IUP 37 weeks with preeclampsia without signs or symptoms of severe preeclampsia. Some moderately elevated blood pressures but no blood pressures in the severe range. There has been some cervical change with cervical ripening with Pitocin. The highest blood pressure was 158/101 but patient was fighting with her at the time. Verbally fighting. When the patient gets stressed or has a stressful events, it seems as though the patient's blood pressures elevate even more which is understandable. Plan: If the blood pressures remain in the 130s over 90s, I will not prescribe magnesium sulfate. But if the patient continues to have slightly more elevated blood pressures in the 150s over low 100s, I will prescribe magnesium sulfate even if it is secondary to the patient having a significant disagreement with her . I discussed with the patient that we will continue cervical ripening and then tonight around 1900 hrs., the Pitocin will be turned off and we will determine if her contractions decreased in frequency and intensity. If this occurs, the patient may eat some and then we will have her rest and sleep and then restart the Pitocin early in the morning around 0430 hrs. to 0500. The patient and her expressed understanding with this plan. If the patient has spontaneous rupture membranes, then we will continue to proceed with cervical ripening and hopefully active labor. The patient and her understand that there is a chance for a section for arrest of dilation, arrest of descent, or nonreassuring status. The heart rate tracing is category 1. The Pitocin will be increased again to help with cervical ripening. Close monitoring of heart rate tracing will be observed.
[2017-04-11] MEDS ORDERED: CALCIUM GLUCONATE 100 MG/1 ML - 10 ML IVP PRN (18:09)
[2017-04-11] MEDS ORDERED: Magnesium Sulfate 4gm (Premix) 4 GM in Premix 1 BAG IV ONE (18:09)
--- NOTE | 2017-04-11 18:13 | OB.PROGRES ---
Interval History: The patient had SROM around 1700 hrs. with clear fluid. The patient can feel her contractions a little bit more. The patient would like an epidural. Objective - Cervical Exam Cervical Exam: 3/60/-3 cephalic. Intrauterine pressure catheter inserted about 5:00 on a clock face. The patient has an anterior placenta by ultrasound at 20 weeks. I reviewed the report. [place]: Contractions every 2-3 minutes Heart Rate Interpretation Category: Category I - Labs CBC and BMP: 04/10/17 09:51 04/10/17 09:51 - Vital Signs Last Taken Vital Signs: Vital Signs - Last Taken Temperature 97.6 F 04/11/17 17:15 Pulse Rate 79 04/11/17 17:15 Respiratory Rate 18 04/11/17 17:15 Blood Pressure 152/88 04/11/17 17:30 Pulse Ox 97 04/11/17 17:15 - Additional Details Additional Details: Reflexes 3+ bilaterally patellar Assessment and Plan - Assessment / Plan Additional Assessment/Plan Details: Assessment: IUP 37 weeks Preeclampsia with elevated blood pressures but not to the severe range. However , blood pressures even the last hour in the 150 systolic range. Group B strep positive No cervical change but the head has actually descended and now is at -3 station versus -2 or perhaps almost -1 station a couple hours ago when I examined her. Plan: Intrauterine pressure catheter placed. Pitocin currently at 4 milliunits. Pitocin will be increased per [facility] for around 200 [place] units. Patient would like epidural placed. I will get a CBC and a CMP prior to epidural. Magnesium sulfate 4 g bolus and then 2 g per hour. I discussed with patient that it can give her a warm sensation and then her vision can be blurry. If the patient requires a section, usually I stopped the magnesium before the section and restart the magnesium sulfate after the section is completed. Follow closely. If patient's blood pressures are completely normal after epidural, magnesium sulfate will be held but administered for any increased blood pressures. It is difficult to assess the patient's blood pressures sometimes because the patient is very anxious and becomes upset easily and also of course has contractions which are painful and causes increased blood pressure.
[2017-04-11] MEDS ORDERED: Magnesium Sulfate (Premix) 500 ML IV SCH (18:15)
[2017-04-11 18:23] LABS: BASOPHILS # (AUTO) 0.04 10*3/UL; BASOPHILS % (AUTO) 0.2 % (0-1); EOSINOPHILS # (AUTO) 0.09 10*3/UL; EOSINOPHILS % (AUTO) 0.5 % (0-8); HEMATOCRIT 35.6 % (37.0-47.0); HEMOGLOBIN 12.1 g/dL (12.0-16.0); LYMPHOCYTES # (AUTO) 2.71 10*3/uL; MEAN CORPUSCULAR HEMOGLOBIN 27.9 PG (27-31); MEAN PLATELET VOLUME 11.3 FL (7.4-12.2); MONOCYTES # (AUTO) 1.07 10*3/UL (0.3-0.8); MONOCYTES % (AUTO) 6.1 % (5-15); NEUTROPHILS # (AUTO) 13.38 10*3/UL; NEUTROPHILS % (AUTO) 76.8 % (50-80); PLATELET MORPHOLOGY COMMENT NORMAL MORPHOLOGY (NORM); RBC MORPHOLOGY COMMENT NORMAL MORPHOLOGY (NORM); RED BLOOD COUNT 4.34 10^6/uL (4.20-5.40); WBC MORPHOLOGY COMMENT NORMAL MORPHOLOGY (NORM)
--- NOTE | 2017-04-11 18:29 | OB.PROGRES ---
Objective - Labs CBC and BMP: 04/11/17 18:21 04/10/17 09:51 Labs - Last 24 Hours: Laboratory Results 04/11/17 Range/Units 18:21 WBC 17.44 H (4.8-10.8) 10^3/uL RBC 4.34 (4.20-5.40) 10^6/uL Hgb 12.1 (12.0-16.0) g/dL Hct 35.6 L (37.0-47.0) % MCV 82.0 (81-99) FL MCH 27.9 (27-31) PG MCHC 34.0 (33-37) g/dL RDW Std Deviation 45.0 (39-50) fL RDW Coeff of Thad 15.5 H (11.5-14.5) % Plt Count 282 (140-350) 10*3/uL MPV 11.3 (7.4-12.2) FL Immature Gran % (Auto) 0.9 (0-5) % Neut % (Auto) 76.8 (50-80) % Lymph % (Auto) 15.5 (10-50) % [place] % (Auto) 6.1 (5-15) % Eos % (Auto) 0.5 (0-8) % Baso % (Auto) 0.2 (0-1) % Immature Gran # (Auto) 0.15 10*3/UL Neut # (Auto) 13.38 10*3/UL Lymph # (Auto) 2.71 10*3/uL [place] # (Auto) 1.07 H (0.3-0.8) 10*3/UL Eos # (Auto) 0.09 10*3/UL Baso # (Auto) 0.04 10*3/UL WBC Morphology Comment Normal morphology (NORM) Plt Morphology Comment Normal morphology (NORM) RBC Morph Comment Normal morphology (NORM) - Vital Signs Last Taken Vital Signs: Vital Signs - Last Taken Temperature 97.6 F 04/11/17 17:15 Pulse Rate 79 04/11/17 17:15 Respiratory Rate 18 04/11/17 17:15 Blood Pressure 146/93 04/11/17 18:00 Pulse Ox 97 04/11/17 17:15 Assessment and Plan - Assessment / Plan Additional Assessment/Plan Details: Ghanshyam units were 190 on 4 milliunits of Pitocin. Patient will receive epidural. Labs pending currently.
[2017-04-11 18:33] LABS: BLOOD UREA NITROGEN 9 mg/dL (7-22); BUN/CREATININE RATIO 12.85 (6-20); EST GLOMERULAR FILTRATION > 60 (>60 ml/min/1.73m(2)); SERUM ALBUMIN 2.9 g/dL (3.5-4.8)
--- NOTE | 2017-04-11 18:37 | OB.PROGRES ---
Objective - Labs CBC and BMP: 04/11/17 18:21 04/11/17 18:21 Labs - Last 24 Hours: Laboratory Results 04/11/17 Range/Units 18:21 WBC 17.44 H (4.8-10.8) 10^3/uL RBC 4.34 (4.20-5.40) 10^6/uL Hgb 12.1 (12.0-16.0) g/dL Hct 35.6 L (37.0-47.0) % MCV 82.0 (81-99) FL MCH 27.9 (27-31) PG MCHC 34.0 (33-37) g/dL RDW Std Deviation 45.0 (39-50) fL RDW Coeff of Thad 15.5 H (11.5-14.5) % Plt Count 282 (140-350) 10*3/uL MPV 11.3 (7.4-12.2) FL Immature Gran % (Auto) 0.9 (0-5) % Neut % (Auto) 76.8 (50-80) % Lymph % (Auto) 15.5 (10-50) % [place] % (Auto) 6.1 (5-15) % Eos % (Auto) 0.5 (0-8) % Baso % (Auto) 0.2 (0-1) % Immature Gran # (Auto) 0.15 10*3/UL Neut # (Auto) 13.38 10*3/UL Lymph # (Auto) 2.71 10*3/uL [place] # (Auto) 1.07 H (0.3-0.8) 10*3/UL Eos # (Auto) 0.09 10*3/UL Baso # (Auto) 0.04 10*3/UL WBC Morphology Comment Normal morphology (NORM) Plt Morphology Comment Normal morphology (NORM) RBC Morph Comment Normal morphology (NORM) Sodium 138 (135-145) meq/L Potassium 3.9 (3.8-5.2) meq/L Chloride 112 (98-112) meq/L Carbon Dioxide 19 L (23-33) meq/L Anion Gap 7 (5-20) BUN 9 (7-22) mg/dL Creatinine 0.7 (0.50-1.20) mg/dL Estimated GFR > 60 (>60 ml/min/1.73m(2)) BUN/Creatinine Ratio 12.85 (6-20) Glucose 74 L (78-110) mg/dL Calculated Osmolality 283.0 (267-292) mOsm/kg Calcium 9.0 (8.7-10.7) mg/dL Total Bilirubin 0.3 (0.3-1.2) mg/dL AST 23 (8-39) IU/L ALT 21 (9-52) IU/L Alkaline Phosphatase 118 (38-126) IU/L Total Protein 5.9 L (6.1-8.0) g/dL Albumin 2.9 L (3.5-4.8) g/dL Globulin 3.0 (2.50-4.10) g/dL Albumin/Globulin Ratio 0.90 L (1.3-2.0) mg/g - Vital Signs Last Taken Vital Signs: Vital Signs - Last Taken Temperature 97.6 F 04/11/17 17:15 Pulse Rate 79 04/11/17 17:15 Respiratory Rate 18 04/11/17 17:15 Blood Pressure 146/86 04/11/17 18:15 Pulse Ox 97 04/11/17 17:15 Assessment and Plan - Assessment / Plan Additional Assessment/Plan Details: Repeat labs appear normal with normal platelets of 282,000. H&H 12 and 35. AST and ALT and creatinine are normal. I did not mention before with my cervical exam having the head at -3 station that I am concerned that the head was at -2 and even perhaps -1 station earlier but now is at -3 station. When I check the patient again in 2-3 hours, I will observe the head station again.
[2017-04-11] MEDS ORDERED: LIDOCAINE MPF 2% - 5 ML (20 MG/1 ML) ONE ×3 (18:52→23:05)
[2017-04-11] MEDS ORDERED: fentaNYL Inj 100 MCG/2 ML VIAL ONE ×2 (18:52→23:08)
[2017-04-11] MEDS ORDERED: BUPivacaine Inj 0.25% PF - 10ml vial ONE (18:52)
[2017-04-11] MEDS ORDERED: Nalbuphine Inj 20 MG/ML Ampule IVP PRN (19:14)
[2017-04-11] MEDS ORDERED: Naloxone Inj 0.01 MG in Normal Saline Flush 1 ML IVP PRN (19:14)
[2017-04-11] MEDS ORDERED: diphenhydrAMINE 50 MG/1 ML VIAL IVP PRN (19:14)
[2017-04-11] MEDS ORDERED: ePHEDrine Inj 5 MG in Normal Saline Flush 1 ML IVP PRN (19:14)
[2017-04-11] MEDS ORDERED: NALOXONE 0.4 MG/1 ML VIAL IVP PRN (19:14)
[2017-04-11] MEDS ORDERED: BUTORPHANOL TARTRATE 2 MG/1 ML VIAL IVP PRN (19:14)
[2017-04-11] MEDS ORDERED: Phenylephrine Inj 50 MCG in Normal Saline Flush 0.5 ML IVP PRN (19:14)
--- NOTE | 2017-04-11 19:14 | CRNA.PROCE ---
Central Neuraxis Block Placemt - - Safety Measures: Time Out Taken, Site Verified - - Type of Block: Epidural Reason for Block: Analgesia Moniters Used During Block: SPO2, NIBP Positioning: Sitting Skin Prep Used: ChloroPrep Draped: Yes Skin Infiltration - Enter Amount Used in Comment Field: 1% Xylocaine with Bicarb (mL): Yes, 1% Xylocaine (mL): Yes Introducer User: None Local Anesthetic - Enter Amount Used in Comment Field: 1.5 % Xylocaine with Epinephrine 1:200,000 (mL): Yes Additive Used - Enter Amount Used in Comment Field: Fentanyl (mcg): Yes (100mcg) Bioclusive Dressing Applied: Yes - - Additional Details: Called to placed labor epidural in a , on a 26yr old FAS adult. Landmarks ID'd, time out, sterile prep, local skin wheal at approx L3-4, 18g Tuohy, first advance, cath threaded with a right side paresthesia, neg test dose at 1848, then a 6cc bolus of quarter percent Bupivacaine plain at 1900, with 100mcg fentanyl in the epidural. Dsg applied pt returned supine with elevated HOB, pt reports contractions have diminshed. [place], [phone]
[2017-04-11] MEDS ORDERED: Fent/Bupiv 2mcg/0.0625% Epid 250 ML ONE (19:19)
[2017-04-11] MEDS ORDERED: fentaNYL 2 MCG/BUPIVACAINE 0.0625%/NS 0.9% 250 ML BAG EPIDURAL SCH (19:30)
--- NOTE | 2017-04-11 22:13 | OB.PROGRES ---
Interval History: The patient is much more comfortable with epidural. Objective - Cervical Exam Cervical Exam: 3-4/80-90/-1 with caput. Cervix palpate slightly firm with the band at the internal Os as before [place]: Ravena units have been running between 195 and 210. Last check of Ravena units were 165. Pitocin at 6 milliunits Heart Rate Interpretation Category: Category I (With scalp stimulation yielding good acceleration with cervical check) - Labs CBC and BMP: 04/11/17 18:21 04/11/17 18:21 Labs - Last 24 Hours: Laboratory Results 04/11/17 Range/Units 18:21 WBC 17.44 H (4.8-10.8) 10^3/uL RBC 4.34 (4.20-5.40) 10^6/uL Hgb 12.1 (12.0-16.0) g/dL Hct 35.6 L (37.0-47.0) % MCV 82.0 (81-99) FL MCH 27.9 (27-31) PG MCHC 34.0 (33-37) g/dL RDW Std Deviation 45.0 (39-50) fL RDW Coeff of Thad 15.5 H (11.5-14.5) % Plt Count 282 (140-350) 10*3/uL MPV 11.3 (7.4-12.2) FL Immature Gran % (Auto) 0.9 (0-5) % Neut % (Auto) 76.8 (50-80) % Lymph % (Auto) 15.5 (10-50) % [place] % (Auto) 6.1 (5-15) % Eos % (Auto) 0.5 (0-8) % Baso % (Auto) 0.2 (0-1) % Immature Gran # (Auto) 0.15 10*3/UL Neut # (Auto) 13.38 10*3/UL Lymph # (Auto) 2.71 10*3/uL [place] # (Auto) 1.07 H (0.3-0.8) 10*3/UL Eos # (Auto) 0.09 10*3/UL Baso # (Auto) 0.04 10*3/UL WBC Morphology Comment Normal morphology (NORM) Plt Morphology Comment Normal morphology (NORM) RBC Morph Comment Normal morphology (NORM) Sodium 138 (135-145) meq/L Potassium 3.9 (3.8-5.2) meq/L Chloride 112 (98-112) meq/L Carbon Dioxide 19 L (23-33) meq/L Anion Gap 7 (5-20) BUN 9 (7-22) mg/dL Creatinine 0.7 (0.50-1.20) mg/dL Estimated GFR > 60 (>60 ml/min/1.73m(2)) BUN/Creatinine Ratio 12.85 (6-20) Glucose 74 L (78-110) mg/dL Calculated Osmolality 283.0 (267-292) mOsm/kg Calcium 9.0 (8.7-10.7) mg/dL Total Bilirubin 0.3 (0.3-1.2) mg/dL AST 23 (8-39) IU/L ALT 21 (9-52) IU/L Alkaline Phosphatase 118 (38-126) IU/L Total Protein 5.9 L (6.1-8.0) g/dL Albumin 2.9 L (3.5-4.8) g/dL Globulin 3.0 (2.50-4.10) g/dL Albumin/Globulin Ratio 0.90 L (1.3-2.0) mg/g - Vital Signs Last Taken Vital Signs: Vital Signs - Last Taken Temperature 98.1 F 04/11/17 18:30 Pulse Rate 73 04/11/17 21:30 Respiratory Rate 20 04/11/17 20:10 Blood Pressure 135/90 04/11/17 21:30 Pulse Ox 100 04/11/17 21:30 Assessment and Plan - Assessment / Plan Additional Assessment/Plan Details: Assessment: IUP 37 weeks with preeclampsia Blood pressures have been good since the epidural except the last 2 blood pressures after I checked the patient's cervix were elevated. A quick recheck yielded a blood pressure of 139/82. The patient seems to become stressed during cervical checks which is most likely normal. The patient is without symptoms of severe preeclampsia such as headache or right upper quadrant pain that is constant. Her labs were just done a couple hours ago which were normal. Group B strep positive There has been some cervical change but the cervix does palpate slightly edematous. The cervix has effaced somewhat from 60% to 80-90%. Plan: Continue Pitocin. May need to increase to 7 milliunits if Ravena units continued to be less than 180. I prefer the Ravena units around 200. Continue to observe the patient's cervix. The tight band that has been at the internal os is still present but palpate slightly differently. The cervix appears slightly edematous. This may all change with the next cervical check or there may be no cervical change at all. If there is no cervical change at all, I will speak with the patient about a section that I have mentioned since yesterday morning when I admitted the patient for induction of labor. The patient is well aware that she may be offered a section at some point for arrest of dilation, arrest of descent, or nonreassuring status. Currently, if blood pressures remain in the 140s over 80s to 90s, I will not start the magnesium sulfate that I ordered earlier. The patient did have 2 elevated blood pressures just after I checked the cervix and lower to her bed to the dorsal supine position and then raised her bed to the semi-Fowlers position. The last blood pressure was normal at 139/82. Continue penicillin for GBS prophylaxis.
--- NOTE | 2017-04-11 23:40 | CRNA.PROGR ---
Anesthesia Note Anesthesia Progress Note: Called for break through pain. Pt had slept four hours, and now having more discomfort and very anxious. 100mcg Fentanyl with 7cc bolus quarter percent of Bupivacaine in the epidural. Reassured pt, all is normal, baby looks good on the monitor. SON Bear [phone]
[2017-04-12] MEDS ORDERED: LIDOCAINE MPF 2% - 5 ML (20 MG/1 ML) ONE ×3 (00:09→00:55)
[2017-04-12] MEDS ORDERED: BUPivacaine Inj 0.25% PF - 10ml vial ONE (00:09)
--- NOTE | 2017-04-12 00:16 | OB.PROGRES ---
Interval History: The patient is feeling her contractions a little bit more. She was given some fentanyl but anesthesia is here to os the epidural. Objective - Cervical Exam Cervical Exam: 4/c/-2 cephalic with caput. I cannot definitely determine position but the head most likely in the OP presentation [place]: Contractions every 2-3 minutes. Last [place] units were 185 Heart Rate Interpretation Category: Category I - Labs CBC and BMP: 04/11/17 18:21 04/11/17 18:21 Labs - Last 24 Hours: Laboratory Results 04/11/17 Range/Units 18:21 WBC 17.44 H (4.8-10.8) 10^3/uL RBC 4.34 (4.20-5.40) 10^6/uL Hgb 12.1 (12.0-16.0) g/dL Hct 35.6 L (37.0-47.0) % MCV 82.0 (81-99) FL MCH 27.9 (27-31) PG MCHC 34.0 (33-37) g/dL RDW Std Deviation 45.0 (39-50) fL RDW Coeff of Thad 15.5 H (11.5-14.5) % Plt Count 282 (140-350) 10*3/uL MPV 11.3 (7.4-12.2) FL Immature Gran % (Auto) 0.9 (0-5) % Neut % (Auto) 76.8 (50-80) % Lymph % (Auto) 15.5 (10-50) % [place] % (Auto) 6.1 (5-15) % Eos % (Auto) 0.5 (0-8) % Baso % (Auto) 0.2 (0-1) % Immature Gran # (Auto) 0.15 10*3/UL Neut # (Auto) 13.38 10*3/UL Lymph # (Auto) 2.71 10*3/uL [place] # (Auto) 1.07 H (0.3-0.8) 10*3/UL Eos # (Auto) 0.09 10*3/UL Baso # (Auto) 0.04 10*3/UL WBC Morphology Comment Normal morphology (NORM) Plt Morphology Comment Normal morphology (NORM) RBC Morph Comment Normal morphology (NORM) Sodium 138 (135-145) meq/L Potassium 3.9 (3.8-5.2) meq/L Chloride 112 (98-112) meq/L Carbon Dioxide 19 L (23-33) meq/L Anion Gap 7 (5-20) BUN 9 (7-22) mg/dL Creatinine 0.7 (0.50-1.20) mg/dL Estimated GFR > 60 (>60 ml/min/1.73m(2)) BUN/Creatinine Ratio 12.85 (6-20) Glucose 74 L (78-110) mg/dL Calculated Osmolality 283.0 (267-292) mOsm/kg Calcium 9.0 (8.7-10.7) mg/dL Total Bilirubin 0.3 (0.3-1.2) mg/dL AST 23 (8-39) IU/L ALT 21 (9-52) IU/L Alkaline Phosphatase 118 (38-126) IU/L Total Protein 5.9 L (6.1-8.0) g/dL Albumin 2.9 L (3.5-4.8) g/dL Globulin 3.0 (2.50-4.10) g/dL Albumin/Globulin Ratio 0.90 L (1.3-2.0) mg/g - Vital Signs Last Taken Vital Signs: Vital Signs - Last Taken Temperature 98.1 F 04/11/17 18:30 Pulse Rate 73 04/11/17 21:30 Respiratory Rate 20 04/11/17 20:10 Blood Pressure 135/90 04/11/17 21:30 Pulse Ox 100 04/11/17 21:30 Assessment and Plan - Assessment / Plan Additional Assessment/Plan Details: Assessment: IUP 37-1/7 week with preeclampsia. Patient's blood pressures have been elevated but only rarely to the severe range but now again just now were elevated again to a diastolic of 100. There has been some cervical change but not significant change but the patient' s cervix is 4 cm and now completely effaced. I do believe that the baby is in the OP presentation currently. GBS positive. The patient is uncomfortable and the epidural will be dosed. Plan: Anesthesia is here evaluating to dose the epidural Magnesium sulfate will be administered. 4 g load and then 2 g per hour Reassess for cervical change in 2-3 hours or sooner if there is heart rate issues. I explained to the patient and her again that there is been minimal cervical change but there has been cervical change. I am concerned that the patient will have a section for either arrest of dilation or arrest of descent but I did inform the patient that I could be incorrect about this. I am fine waiting another 2-3 hours as long as there is a reassuring heart rate tracing. However, if the patient informed me that she would like a section, I would be fine doing a section and would believe that there would be an indication. Currently, the plan is to wait and to dose the epidural to hopefully have the patient become more comfortable and then reassess for cervical change in 2-3 hours. This is what the patient would like to do.
--- NOTE | 2017-04-12 00:30 | OB.PROGRES ---
Objective - Labs CBC and BMP: 04/11/17 18:21 04/11/17 18:21 Labs - Last 24 Hours: Laboratory Results 04/11/17 Range/Units 18:21 WBC 17.44 H (4.8-10.8) 10^3/uL RBC 4.34 (4.20-5.40) 10^6/uL Hgb 12.1 (12.0-16.0) g/dL Hct 35.6 L (37.0-47.0) % MCV 82.0 (81-99) FL MCH 27.9 (27-31) PG MCHC 34.0 (33-37) g/dL RDW Std Deviation 45.0 (39-50) fL RDW Coeff of Thad 15.5 H (11.5-14.5) % Plt Count 282 (140-350) 10*3/uL MPV 11.3 (7.4-12.2) FL Immature Gran % (Auto) 0.9 (0-5) % Neut % (Auto) 76.8 (50-80) % Lymph % (Auto) 15.5 (10-50) % [place] % (Auto) 6.1 (5-15) % Eos % (Auto) 0.5 (0-8) % Baso % (Auto) 0.2 (0-1) % Immature Gran # (Auto) 0.15 10*3/UL Neut # (Auto) 13.38 10*3/UL Lymph # (Auto) 2.71 10*3/uL [place] # (Auto) 1.07 H (0.3-0.8) 10*3/UL Eos # (Auto) 0.09 10*3/UL Baso # (Auto) 0.04 10*3/UL WBC Morphology Comment Normal morphology (NORM) Plt Morphology Comment Normal morphology (NORM) RBC Morph Comment Normal morphology (NORM) Sodium 138 (135-145) meq/L Potassium 3.9 (3.8-5.2) meq/L Chloride 112 (98-112) meq/L Carbon Dioxide 19 L (23-33) meq/L Anion Gap 7 (5-20) BUN 9 (7-22) mg/dL Creatinine 0.7 (0.50-1.20) mg/dL Estimated GFR > 60 (>60 ml/min/1.73m(2)) BUN/Creatinine Ratio 12.85 (6-20) Glucose 74 L (78-110) mg/dL Calculated Osmolality 283.0 (267-292) mOsm/kg Calcium 9.0 (8.7-10.7) mg/dL Total Bilirubin 0.3 (0.3-1.2) mg/dL AST 23 (8-39) IU/L ALT 21 (9-52) IU/L Alkaline Phosphatase 118 (38-126) IU/L Total Protein 5.9 L (6.1-8.0) g/dL Albumin 2.9 L (3.5-4.8) g/dL Globulin 3.0 (2.50-4.10) g/dL Albumin/Globulin Ratio 0.90 L (1.3-2.0) mg/g - Vital Signs Last Taken Vital Signs: Vital Signs - Last Taken Temperature 98.1 F 04/11/17 18:30 Pulse Rate 73 04/11/17 21:30 Respiratory Rate 20 04/11/17 20:10 Blood Pressure 135/90 04/11/17 21:30 Pulse Ox 100 04/11/17 21:30 Assessment and Plan - Assessment / Plan Additional Assessment/Plan Details: The patient is currently declining magnesium sulfate for seizure prophylaxis secondary to her preeclampsia and her elevated blood pressures. The patient would like to wait and determine if the epidural dosing helps with her pain and therefore helps with her blood pressures. I explained to the patient that I would be administering magnesium sulfate for seizure prophylaxis. I explained that statistically she will not have seizures but I was trying to prevent it even more by administering the magnesium sulfate. I explained magnesium sulfate earlier yesterday and also again now and the fact that she could have some blurred vision and feel fatigued and perhaps her mentation would be clouded somewhat from her baseline. I also explained that it was the patient's right to decline any therapy or medication or suggestion. I also explained that I would just trying to help by administering the magnesium sulfate to try to prevent seizures secondary to her elevated blood pressures. The patient did have 3+ reflexes earlier but no clonus. The patient expressed understanding but would like to currently declining the magnesium sulfate. The patient did ask if she were to receive magnesium sulfate , how long she would receive the magnesium sulfate. I explained that usually we continue the magnesium sulfate for 24 hours. I also stop the magnesium sulfate around the section time frame. The patient expressed understanding.
[2017-04-12] MEDS ORDERED: ONDANSETRON 4 MG/2 ML VIAL ONE (00:32)
[2017-04-12] MEDS ORDERED: FAMOTIDINE 20 MG/2 ML VIAL IVP ONE (00:33)
[2017-04-12] MEDS ORDERED: Sodium Chloride 0.9% vial 20 ML ONE (01:15)
[2017-04-12] MEDS ORDERED: Ropivacaine 0.2% VIAL 20 ML ONE (01:15)
--- NOTE | 2017-04-12 02:25 | CRNA.PROGR ---
Anesthesia Note Anesthesia Progress Note: Pt having left sided pain, 10cc of 0.1% Ropivacaine plaine in divided doses. RN check pt, she is complete, and OBGYN called. 0130 SON Bear
--- NOTE | 2017-04-12 02:29 | OB.PROGRES ---
Interval History: The patient is somewhat uncomfortable with contractions. She has been pushing now for about 15 or 30 minutes. Objective - Cervical Exam Cervical Exam: C/C/+2 cephalic and apparently the baby rotated some time when the nurse was rotating the patient to her different sides. [place]: Contraction every 2-3 minutes Heart Rate Interpretation Category: Category I - Labs CBC and BMP: 04/11/17 18:21 04/11/17 18:21 Labs - Last 24 Hours: Laboratory Results 04/11/17 Range/Units 18:21 WBC 17.44 H (4.8-10.8) 10^3/uL RBC 4.34 (4.20-5.40) 10^6/uL Hgb 12.1 (12.0-16.0) g/dL Hct 35.6 L (37.0-47.0) % MCV 82.0 (81-99) FL MCH 27.9 (27-31) PG MCHC 34.0 (33-37) g/dL RDW Std Deviation 45.0 (39-50) fL RDW Coeff of Thad 15.5 H (11.5-14.5) % Plt Count 282 (140-350) 10*3/uL MPV 11.3 (7.4-12.2) FL Immature Gran % (Auto) 0.9 (0-5) % Neut % (Auto) 76.8 (50-80) % Lymph % (Auto) 15.5 (10-50) % [place] % (Auto) 6.1 (5-15) % Eos % (Auto) 0.5 (0-8) % Baso % (Auto) 0.2 (0-1) % Immature Gran # (Auto) 0.15 10*3/UL Neut # (Auto) 13.38 10*3/UL Lymph # (Auto) 2.71 10*3/uL [place] # (Auto) 1.07 H (0.3-0.8) 10*3/UL Eos # (Auto) 0.09 10*3/UL Baso # (Auto) 0.04 10*3/UL WBC Morphology Comment Normal morphology (NORM) Plt Morphology Comment Normal morphology (NORM) RBC Morph Comment Normal morphology (NORM) Sodium 138 (135-145) meq/L Potassium 3.9 (3.8-5.2) meq/L Chloride 112 (98-112) meq/L Carbon Dioxide 19 L (23-33) meq/L Anion Gap 7 (5-20) BUN 9 (7-22) mg/dL Creatinine 0.7 (0.50-1.20) mg/dL Estimated GFR > 60 (>60 ml/min/1.73m(2)) BUN/Creatinine Ratio 12.85 (6-20) Glucose 74 L (78-110) mg/dL Calculated Osmolality 283.0 (267-292) mOsm/kg Calcium 9.0 (8.7-10.7) mg/dL Total Bilirubin 0.3 (0.3-1.2) mg/dL AST 23 (8-39) IU/L ALT 21 (9-52) IU/L Alkaline Phosphatase 118 (38-126) IU/L Total Protein 5.9 L (6.1-8.0) g/dL Albumin 2.9 L (3.5-4.8) g/dL Globulin 3.0 (2.50-4.10) g/dL Albumin/Globulin Ratio 0.90 L (1.3-2.0) mg/g - Vital Signs Last Taken Vital Signs: Vital Signs - Last Taken Temperature 98.1 F 04/11/17 18:30 Pulse Rate 73 04/11/17 21:30 Respiratory Rate 20 04/11/17 20:10 Blood Pressure 135/90 04/11/17 21:30 Pulse Ox 100 04/11/17 21:30 Assessment and Plan - Assessment / Plan Additional Assessment/Plan Details: Assessment: IUP 37-1/7 week with preeclampsia. Patient now with cervical change and complete and +2 station GBS positive Plan: The patient is learning how to push from the nurse's instruction currently. Continue to observe The magnesium sulfate has not been started per patient request.
--- NOTE | 2017-04-12 04:36 | OB.OP.NOTE ---
Operative Report Surgeon: Simone Anesthesia Type: Regional (Epidural), Local (1% lidocaine without epinephrine) Anesthesia Provider: Ernestine Dukes CRNA Surgery Date: 04/12/17 Preoperative Diagnosis: IUP 37-1/7 week. Preeclampsia without signs or symptoms of severe preeclampsia initially but prior to delivery blood pressures elevated to occasional severe range. Group B strep positive. Patient admitted at 36-6/7 weeks for cervical ripening and induction of labor Postoperative Diagnosis: Same Procedure: Cervical ripening with Cytotec. Cervical ripening with Pitocin. Intrauterine pressure catheter. Pitocin augmentation of contractions. Right Medial lateral episiotomy. Spontaneous vaginal delivery over right medial lateral episiotomy. Repair of medial lateral episiotomy Estimated Blood Loss (mL): 400 Fluids: Pitocin after delivery Complications: None apparent There was a body umbilical cord at delivery The delivered in the OP presentation Findings at Surgery: Male infant delivered in the OP presentation Body cord 1 easily reduced at delivery Weight was 7 pounds 1.9 ounces Blood gas showed a pH of 7.33, PCO2 of 36, HCO3 of 19, base excess -7 Indications for the Procedure: Patient's a 26-year-old at 36-6/7 weeks on admission and 37 and one sevenths weeks at delivery who was diagnosed with preeclampsia without signs or symptoms of severe preeclampsia one week prior and was administered steroids to assist with lung maturity. Patient was admitted at 36-6/7 weeks for cervical ripening and then underwent cervical ripening and then Pitocin augmentation and then delivery. Description of Procedure: Delivery note: The Nicole catheter had been removed. Also the IUPC was removed since the patient couldn't palpate her contractions. The patient pushed for one hour and 11 minutes. After about 1 hour of pushing, the patient's perineum was quite taut compared to the baby's head circumference and the patient asked to have a episiotomy performed. After assessing the patient's sphincter muscle location, a medial lateral episiotomy was made after 1% Xylocaine with epinephrine was injected. The patient pushed several more times and then delivered the baby's head in the direct OP presentation. There were no extensions of the medial lateral episiotomy. The baby's head and then anterior shoulder after rotation and then the posterior shoulder was delivered. There was noted to be a loose body cord which was easily reduced. Delayed clamping of the umbilical cord for about 45 seconds was allowed for. The umbilical cord was then clamped and cut by the father. The baby was handed off to the nurses. A section of cord was obtained for cord gases and then cord blood was obtained. The placenta was then delivered spontaneously after about 5 minutes. The placenta was inspected later and appeared to be intact. The uterine fundus was massaged after delivery of the placenta. There is about a total of 400 mL of blood loss. The uterus did clamp down but secondary to the long course of Pitocin, I also asked for and administered rectal Cytotec 1000 g. There were 200 g tablets and I broke them in half and then placed them through the anus into the rectum for better absorption. The uterus did clamp down even more. Attention was then turned to the medial lateral laceration. I did reinforce the sphincter muscle with 0 Vicryl suture [id number] 3. Rectal exam was completed and there was no suture in the rectum. Gloves were always changed after a rectal exam. I then used 3-0 Rapide suture starting at the apex of the suture vaginally and repaired in a running locking fashion to the hymenal ring and then dove down deep and then closed the deeper perineum with 2-0 Vicryl suture and then the 3- 0 repeat suture. I then closed the subcuticular area with a 3-0 repeat suture and then dove back into the vagina and then applied one more suture and then tied this. Copious amounts of irrigation was used intermittently to cleanse the area. There is good hemostasis. Of note, I could not visualize the patient 's cervix after delivery secondary to discomfort. The patient was hemostatic though. Sponge lap and needle counts were correct 2. The patient and baby would recover in the delivery room. Findings were a male with weight of 7 pounds 1.9 ounces. ABG showed a pH of 7.33 PCO2 a 36 HCO3 of 19 and a base excess of -7 EBL was about 400 mL. Plan: The patient and her baby will recover in the delivery room and then room if the delivery room is needed for other patient care.
[2017-04-12] MEDS ORDERED: Oxytocin 20 Units + LR 1,000 ML IV SCH (04:57)
[2017-04-12] MEDS ORDERED: ACETAMINOPHEN 325 MG TABLET PO PRN (04:57)
[2017-04-12] MEDS ORDERED: Nalbuphine Inj 20 MG/ML Ampule IVP PRN (04:57)
[2017-04-12] MEDS ORDERED: GLYCERIN/WITCH HAZEL 1 BOX TOPICAL PRN (04:57)
[2017-04-12] MEDS ORDERED: diphenhydrAMINE 25 MG CAPSULE PO PRN (04:57)
[2017-04-12] MEDS ORDERED: BENZOCAINE/MENTHOL SPRAY 56 GM BOTTLE TOPICAL PRN (04:57)
[2017-04-12] MEDS ORDERED: NORMAL SALINE 10 ML SYRINGE FLUSH IVP PRN (04:57)
[2017-04-12] MEDS ORDERED: diphenhydrAMINE 50 MG/1 ML VIAL IVP PRN (04:57)
[2017-04-12] MEDS ORDERED: Carboprost Inj 250 MCG/ML AMP IM PRN (04:57)
[2017-04-12] MEDS ORDERED: MISOPROSTOL 200 MCG TABLET RECTAL ONE (04:57)
[2017-04-12] MEDS ORDERED: CALCIUM CARBONATE 500 MG (TUMS) CHEWABLE TABLET PO PRN (04:57)
[2017-04-12] MEDS ORDERED: Ondansetron ODT Tab 4 MG TAB PO PRN (04:57)
[2017-04-12] MEDS ORDERED: OXYTOCIN 10 UNIT/1 ML IM ONE (04:57)
[2017-04-12] MEDS ORDERED: HYDROcodone-APAP 5 MG -325 MG TABLET PO PRN (04:57)
[2017-04-12] MEDS ORDERED: Methylergonovine Tab 0.2 MG TAB PO PRN (04:57)
[2017-04-12] MEDS ORDERED: DIPH,PERTUSS,TET(ADACEL) VAC/PF 0.5 ML (Tdap) IM ONE (04:57)
[2017-04-12] MEDS ORDERED: ONDANSETRON 4 MG/2 ML VIAL IVP PRN (04:57)
[2017-04-12] MEDS ORDERED: LANOLIN HPA 40 GM TUBE TOPICAL PRN (04:57)
[2017-04-12] MEDS ORDERED: METHYLERGONOVINE MALEATE 0.2 MG/1 ML VIAL IM PRN (04:57)
[2017-04-12] MEDS: DOCUSATE 100 MG CAPSULE PO SCH (08:38)
[2017-04-12] MEDS: Prenatal Multivitamin Tab 1 TAB TAB PO SCH (08:38)
[2017-04-12] MEDS: IBUPROFEN 800 MG TABLET PO PRN ×2 (08:38→16:09)
--- NOTE | 2017-04-12 11:08 | OB.PROGRES ---
Subjective Post Day: 0 Pain Management: PO Nicole Catheter: No Flatus: Yes Diet: Regular [place] Feeding Method: Exculsively Ambulating: Yes Concerns / Additional Information: The patient is ambulating to the restroom. No headache. No blurred vision. The patient feels well. She is breast-feeding. The baby latched on okay the patient says Objective - General General Appearance: POSITIVE: No Acute Distress, Cooperative - Cardiovacular Cardiovascular Exam: POSITIVE: RRR Edema: No Pedal Edema (Perhaps trace edema bilaterally., Reflexes 2+ bilaterally) Extremities: Negative Carlotta's - Bilaterally - Respiratory Respiratory Exam: POSITIVE: Clear to Auscultation - Bilaterally, Breathing Non Labored - Reflexes Clonus (indicate extremity in comment field): Absent Deep Tendon Reflex (indicate extremity in comment field): Normal +2 - Abdomen Bowel Sounds: Present - Fundus/Lochia/Perineum Uterus Consistency: Firm Uterus Position: POSITIVE: At Umbilicus Assesstment / Plan Assessment / Plan: Assessment: day #0 status post spontaneous vaginal delivery over a right mediolateral episiotomy Patient has preeclampsia and low pressures remained slightly elevated in the 140s over 90s. The patient is asymptomatic. The patient had previously declined magnesium sulfate. The patient is breast-feeding and working with the nurse Plan: Continue care I discussed with the patient that if the patient's blood pressures elevate, I would like to place the patient on magnesium sulfate for 24 hours intravenously. I discussed with the patient that if the patient's blood pressures remain at the level that they are, I may need to place the patient on an antihypertensive for a short 4-6 week period and sometimes longer I discussed with the patient that she does have an increased risk of hypertension later in life secondary to the preeclampsia. I discussed with the patient that if she chooses to conceive again, I would recommend a baby aspirin to be started around 12-13 weeks' gestation to try to help prevent preeclampsia from occurring in the next . The patient expressed understanding. The patient may need to be reminded about this in her next . The patient will be followed here for the next 2 days at least. Again, the patient may need to be started on an antihypertensive. I would most likely choose a calcium channel teagan such as extended release nifedipine 30 mg daily to start. If the patient's blood pressures elevate, I would choose to start magnesium sulfate and administer it for 24 hours. Again, the patient has declined this. The patient may ambulate but we do need to check the patient's blood pressures. Of note, There is an incorrect value in the vital signs. At one time earlier this morning there is documentation that the patient's respiratory rate was 97. This was not accurate.
--- NOTE | 2017-04-12 14:36 | CRNA.PROGR ---
Anesthesia Note Anesthesia Progress Note: First day post , pt up in chair breast feeding, present. Pt reports has been ambulating and eating. Her only discomfort is increased cramping when breast feeding. She has no complaints at this time. SON Bear
[2017-04-12] MEDS: Lactated Ringers-OB Dept 1,000 ML PRIMARY IV SCH (21:27)
[2017-04-13 06:02] LABS: HEMATOCRIT 30.4 % (37.0-47.0); HEMOGLOBIN 10.1 g/dL (12.0-16.0); MEAN CORPUSCULAR HEMOGLOBIN 27.9 PG (27-31); MEAN CORPUSCULAR HGB CONC 33.2 g/dL (33-37); MEAN PLATELET VOLUME 11.2 FL (7.4-12.2); RED BLOOD COUNT 3.62 10^6/uL (4.20-5.40)
[2017-04-13 06:09] LABS: BLOOD UREA NITROGEN 11 mg/dL (7-22); BUN/CREATININE RATIO 13.75 (6-20); CALCIUM 8.4 mg/dL (8.7-10.7); EST GLOMERULAR FILTRATION > 60 (>60 ml/min/1.73m(2)); SERUM ALBUMIN 2.5 g/dL (3.5-4.8)
[2017-04-13] MEDS: Prenatal Multivitamin Tab 1 TAB TAB PO SCH (08:45)
[2017-04-13] MEDS: DOCUSATE 100 MG CAPSULE PO SCH ×3 (08:45→22:54)
[2017-04-13] MEDS: IBUPROFEN 800 MG TABLET PO PRN (08:45)
--- NOTE | 2017-04-13 10:15 | OB.PROGRES ---
Subjective Post Day: 1 Pain Management: PO Nicole Catheter: No Flatus: Yes Diet: Regular [place] Feeding Method: Exculsively Ambulating: Yes Concerns / Additional Information: The patient is a little frustrated secondary to breast-feeding since her nipples are flat or perhaps inverted. She has been getting a lot of teaching from the nurses which she is happy about. The patient has some pain in her perineum. She is going to get a sitz bath today Objective - General General Appearance: POSITIVE: No Acute Distress, Cooperative - Cardiovacular Cardiovascular Exam: POSITIVE: RRR Edema: No Pedal Edema Extremities: Negative Carlotta's - Bilaterally - Respiratory Respiratory Exam: POSITIVE: Clear to Auscultation - Bilaterally - Fundus/Lochia/Perineum Uterus Consistency: Firm Uterus Position: POSITIVE: Below Umbilicus Assesstment / Plan Assessment / Plan: Assessment: day #1 status post spontaneous vaginal delivery over medial lateral episiotomy. Mild anemia with an H&H of 10 and 30 Other labs including platelets, creatinine, AST and ALT are normal. White count is slightly elevated but decreasing. Plan: Continue care and continue teaching Ibuprofen 3 times a day Hydrocodone when necessary Sitz baths starting today twice a day at least Consider discharge home tomorrow. I would like spa consultant to see the patient tomorrow. Start ferrous sulfate tomorrow Observe blood pressures today. If patient continues to have elevated blood pressures, I would like to start nifedipine extended release 30 mg. The patient's last 2 blood pressures have been normal.
[2017-04-13] MEDS: IBUPROFEN 800 MG TABLET PO SCH (17:08)
[2017-04-14] MEDS: IBUPROFEN 800 MG TABLET PO SCH ×4 (00:33→17:19)
[2017-04-14] MEDS: DOCUSATE 100 MG CAPSULE PO SCH ×2 (09:06→21:25)
[2017-04-14] MEDS: Prenatal Multivitamin Tab 1 TAB TAB PO SCH (09:06)
--- NOTE | 2017-04-14 12:41 | OB.PROGRES ---
Subjective Post Day: 2 Pain Management: PO Nicole Catheter: No Flatus: Yes Diet: Regular [place] Feeding Method: / Bottle Ambulating: Yes Concerns / Additional Information: The patient states she has had no headache or right upper quadrant pain. The patient does recall that she was slightly stressed last evening when she had an elevated blood pressure. She is already requested no visitors today. Her baby is under bili lights secondary to a high bilirubin. She is comfortable with that. Objective - General General Appearance: POSITIVE: No Acute Distress (Blood pressure was 154/90 just now.), Cooperative - Cardiovacular Cardiovascular Exam: POSITIVE: RRR Edema: +1 Pedal Edema (Bilaterally. No Homans.) Extremities: Negative Carlotta's - Bilaterally - Respiratory Respiratory Exam: POSITIVE: Clear to Auscultation - Bilaterally - Fundus/Lochia/Perineum Uterus Consistency: Firm Uterus Position: POSITIVE: At Umbilicus (Nontender with palpation) Assesstment / Plan Assessment / Plan: Assessment: day #2 status post spontaneous vaginal delivery over medial lateral episiotomy. Preeclampsia with occasional elevated blood pressure over 160/110. Patient had previously declined magnesium sulfate. The patient had 2 elevated blood pressures last evening at 2030 hrs. and then 2218 hrs. That her blood pressures have been normal-actually very normal-until just now when it was 154/90. No headache or right upper quadrant pain. Labs yesterday morning were normal. The baby is under bilirubin lights. Plan: Start nifedipine XL 30 mg now Observe patient until tomorrow to observe her blood pressures on the calcium channel teagan-nifedipine Patient's baby has to stay secondary to increased bilirubin Continue care
[2017-04-14] MEDS ORDERED: NIFEdipine 30 MG ER 24H TABLET PO SCH (13:00)
--- NOTE | 2017-04-14 13:03 | DCSUMMARY ---
Hospitalization Summary Admit Date: 04/10/17 Discharge Date: 04/15/17 Primary Diagnosis:: IUP 36 6/7 wks on admit, preeclampsia Secondary Diagnosis:: IUP 36-6/7 weeks on admission Preeclampsia without signs or symptoms of severe preeclampsia on admission Group B strep positive Patient admitted for cervical ripening for induction of labor Primary Surgery and Date: 04/12/2017. Spontaneous vaginal delivery over a mediolateral episiotomy and then repair of episiotomy Delivery Type: Vaginal Hospital Course: Patient was admitted on 04/10/2017 for induction of labor with cervical ripening secondary to preeclampsia without signs or symptoms of severe preeclampsia. The diagnosis was made the weekend before with the patient presented with contractions and was noted to have elevated blood pressures and then a 24 urine was completed which showed more than 1 g of protein in 24 hours. Celestone course was administered for lung maturity. Patient underwent 1 dose of Cytotec 25 g for cervical ripening and then Pitocin for cervical ripening. The patient had spontaneous rupture membranes with clear fluid. The patient then progressed slowly with cervical ripening and dilation and then had a spontaneous vaginal delivery over midline episiotomy. Prior to delivery, there were occasional blood pressures in the severe range and then elevated blood pressures in the 150s over 100s. I ordered magnesium sulfate but the patient declined this. After delivery, the patient's blood pressures remained labile. On day #2, several blood pressures were normal but then she had a blood pressure of 154/90. Nifedipine XL 30 mg was started on day #2. Blood pressures were observed. Blood pressures were normal after nifedipine was started. On day #3, the patient had bilateral lower extremity edema with the left slightly greater than the right leg. Ultrasound of left leg was ordered. Ultrasound of left leg was negative for DVT. The patient was sent home on day #3 with precautions. / Postop Complications: Please see above The patient was placed on nifedipine XL 30 mg for continued elevated blood pressures during the course. [place] Complications: The baby was placed under bili lights for hyperbilirubinemia. On April 15, the patient's baby was taken off of bili lights. Baby was discharged home. Exam - Vitals Vital Signs: Vital Signs Temperature 97.7 F Temperature Source Oral Pulse Rate [Apical] 74 Pulse Rate [Pulse Oximeter] 94 Pulse Rate 108 Respiratory Rate [contractions 20 ] Respiratory Rate 20 Blood Pressure [Right Arm] 154/90 Blood Pressure [Left Arm] 138/91 Blood Pressure 142/93 Pulse Ox 100 Oxygen Delivery Method Room Air Height 5 ft 3 in Weight 195 lb 6.4 oz
[2017-04-15] MEDS: IBUPROFEN 800 MG TABLET PO SCH ×2 (00:40→08:48)
[2017-04-15 05:23] VITALS: RESP 16
[2017-04-15] MEDS: Prenatal Multivitamin Tab 1 TAB TAB PO SCH (08:49)
[2017-04-15 08:50] VITALS: TEMP 97.5
[2017-04-15] MEDS: DOCUSATE 100 MG CAPSULE PO SCH (08:50)
[2017-04-15] MEDS ORDERED: NIFEdipine 30 MG ER 24H TABLET PO SCH (09:00)
--- NOTE | 2017-04-15 11:44 | OB.PROGRES ---
Subjective Post Day: 3 Pain Management: PO Nicole Catheter: No Flatus: Yes Diet: Regular [place] Feeding Method: / Bottle (Pumping, supplementing) Ambulating: Yes Concerns / Additional Information: The patient is tolerating her nifedipine well. The patient would like to go home today. Objective - General General Appearance: POSITIVE: No Acute Distress, Cooperative - Cardiovacular Cardiovascular Exam: POSITIVE: RRR Edema: +2 Pedal Edema (Left leg slightly greater than right leg, no Homans bilaterally.) Extremities: Negative Carlotta's - Bilaterally - Respiratory Respiratory Exam: POSITIVE: Clear to Auscultation - Bilaterally - Fundus/Lochia/Perineum Uterus Consistency: Firm Uterus Position: POSITIVE: At Umbilicus Assesstment / Plan Assessment / Plan: Assessment: day #3 status post spontaneous vaginal delivery over a mediolateral episiotomy. The patient is doing well. The patient's left leg is slightly more edematous than right leg. Negative Homans sign. The patient's blood pressures are normal now that we started nifedipine 30 mg XL. Patient is tolerating it well. Plan: Discharge home today but first a Doppler of her left leg to ensure no DVT. Follow-up with blood pressures in one week with me but any time the baby is seen , a pressure should be completed. Nifedipine 30 mg XL daily for the next several weeks. Eventually, I will discontinue the nifedipine most likely. If the patient starts to get lightheaded, the patient will need to have the nifedipine stopped. Sits baths twice a day Please see discharge plan.
--- NOTE | 2017-04-15 13:00 | OB.PROGRES ---
Assesstment / Plan Assessment / Plan: Ultrasound of left leg was negative for DVT. The patient may be discharged home.
--- NOTE | 2017-04-15 13:13 | DI ---
US UP/LOW EXT VEINS U/L OR LTD,04/15/2017 11:46 AM: Clinical History: Left leg edema worse than right Previous Exam: None at this facility. Findings: Multiple grayscale and color Doppler sonographic images are obtained through the deep veins of the le ft large cavity, and demonstrate normal deep veins. There is no evidence of echogenic thrombus. There is normal Doppler flow. There is complete coaptation upon graded compression throughout. Impression: No evidence of deep venous thrombosis within the left lower extremity.
== END 2017-04-15 14:37 | disposition home or self-care (01) | DRG 774 ==
LOC: OBIP 09:33
PROVIDERS: ADMIT Obstetrics & Gynecology; ATTEND Obstetrics & Gynecology
PROC: 3E033VJ Introduction of Other Hormone into Peripheral Vein, Percutaneous Approach (ICD-10-PCS; 2017-04-10)
PROC: 0W8NXZZ Division of Female Perineum, External Approach (ICD-10-PCS; principal; 2017-04-12)
PROC: 10E0XZZ Delivery of Products of Conception, External Approach (ICD-10-PCS; 2017-04-12)
DX: O14.94 Unspecified pre-eclampsia, complicating childbirth (principal); O98.813 Other maternal infectious and parasitic diseases complicating pregnancy, third trimester; Z3A.37 37 weeks gestation of pregnancy; Z37.0 Single live birth; B95.1 Streptococcus, group B, as the cause of diseases classified elsewhere
CPT/HCPCS: 36415; 80053; 81003; 83615; 84550; 85025; 85027; 93971; A4216; J0610; J2001; J2405; J2540; J3010; J7050; J7120; Q0177